=== PATIENT | female | born 1945 | race African-American/Black ===

== ENCOUNTER 2018-07-25 10:12 | Inpatient (IN) | payer OTHER ==
[2018-07-25 10:32] VITALS: BMI 37.7
--- NOTE | 2018-07-25 10:44 | HP ---
COWS - Scale Resting Pulse: 0= [place] 80 or Below Sweatin= No chills or Flushing Restless Observation: 1= Difficult to Sit Still Pupil Size: 1= Pupils >than Normal Bone or Joint Aches: 0= None Runny Nose/ Eye Tearin= Constantly Teary/Runny GI Upset > 30mins: 2= Nausea/Diarrhea Tremor Observation: 0= None Yawning Observation: 0= None Anxiety or Irritability: 0= None Goose Flesh Skin: 0=Smooth Skin COWS Score: 8 CIWA Score - Admission Criteria [facility]ASAS Guidelines: Admission for Medically Managed Detox: Requires at least one of the followin. CIWA greater than 12 2. Seizures within the past 24 hours 3. Delirium tremens within the past 24 hours 4. Hallucinations within the past 24 hours 5. Acute intervention needed for co occurring medical disorder 6. Acute intervention needed for co occurring psychiatric disorder 7. Severe withdrawal that cannot be handled at a lower level of care (continued vomiting, continued diarrhea, abnormal vital signs) requiring intravenous medication and/or fluids 8. Admission ROS [facility] - [facility] Allergies/Adverse Reactions: Allergies Allergy/AdvReac Type Severity Reaction Status Date / Time Penicillins Allergy Severe unknown Verified 07/25/18 11:47 History of Present Illness: patient here requesting detox from heroin use reports 5-6 bags /day via inhalation since age 27 , intermittent periods of sobriety , reports uses after work ( 11 -7p) , currently with withdrawal symptoms as above , latest use yesterday 4 p.m. This is the patient's first treatment episode , denies participation in any outpatient program . Planning to go to [facility]one upon d /c from this detox . utox +opi, sven, mtd , reports took Methadone from a friend last week ( Tuesday take-home dose shared ) , unsure of amount cocaine : 1 gr/day since age 27 tobacco : 1 ppd , requesting nrt w/ gum PMHX : HTN, HLD , borderline DM PSHx : MIRIAM 10/07 uterine fibroids , 1977 BSO no children Psych : denies dx . Exam Limitations: No Limitations - Ebola screening Have you traveled outside of the country in the last 21 days: No Have you had contact with anyone from an Ebola affected area: No Have you been sick,other than usual withdrawal symptoms: No Do you have a fever: No - Review of Systems Constitutional: See HPI EENT: reports: Other (reading glasses , upper and lower dentures) Cardiac: reports: No Symptoms Reported, Other GI: reports: Nausea, Abdominal cramping : reports: No Symptoms Reported Musculoskeletal: reports: Muscle Pain Integumentary: reports: No Symptoms Reported Neuro: reports: No Symptoms reported Endocrine: reports: Other (borderline DM) Psychiatric: reports: Judgement Intact, Orientated x3, Anxious Patient History - Smoking Cessation Smoking history: Current every day smoker Have you smoked in the past 12 months: Yes Aproximately how many cigarettes per day: 20 Hx Chewing Tobacco Use: No Initiated information on smoking cessation: No - Substances Abused Heroin Route: Inhalation Frequency: Daily Amount used: 6 bags Age of first use: 20 Date of Last Use: 07/24/18 Crack Route: Smoking Frequency: 3-6 times per week Amount used: $75 Age of first use: 32 Date of Last Use: 07/23/18 Family Disease History - Family Disease History Family Disease History: Heart Disease: Mother (htn,CAD), Other: Father (ETOH abuse , liver cirrhosis ), Sister (htn, heart disease ) Admission Physical Exam [facility] - Vital Signs Vital Signs: Vital Signs - 24 hr 07/25/18 10:28 Temperature 97.0 F L Pulse Rate 65 Respiratory 18 Rate Blood Pressure 142/70 - Physical General Appearance: Yes: Disheveled, Moderate Distress, Other (malodorous) HEENTM: Yes: Hearing grossly Normal, Normal Voice, Nasal Congestion, Rhinorrhea , Other (upper and lower dentures left upper palpebral small growth medial side -pt states has had x 20 years) Respiratory: Yes: Chest Non-Tender, Lungs Clear, Normal Breath Sounds Neck: Yes: No masses,lesions,Nodules, Trachea in good position Breast: Yes: Breast Exam Deferred Cardiology: Yes: Regular Rhythm, Regular Rate, S1, S2, Other (II/ VISHAL EKG done - c/w 1st degreee AV block , pt denies chest pain at this time , advised to see cardiology , discussed at length , verbalizes understanding, agreeeable to followup with PMD .) Abdominal: Yes: Normal Bowel Sounds, Protuberent Genitourinary: Yes: Within Normal Limits Back: Yes: Muscle Spasm Musculoskeletal: Yes: full range of Motion, Gait Steady Extremities: Yes: Normal Capillary Refill, Normal Range of Motion, Pedal Edema, Other (reports bilateral leg edema x 1 mo , has not been taking BP meds / diuretic) Neurological: Yes: Fully Oriented, Alert, Normal Mood/Affect Integumentary: Yes: Other (non- pitting edema bilateral LE) - Diagnostic (1) Opioid withdrawal Current Visit: Yes Status: Acute (2) Nicotine dependence Current Visit: Yes Status: Chronic Qualifiers: Nicotine product type: cigarettes (3) Cocaine dependence Current Visit: Yes Status: Chronic Qualifiers: Substance use status: uncomplicated Qualified Code(s): F14.20 - Cocaine dependence, uncomplicated (4) Hypertension Current Visit: Yes Status: Chronic Qualifiers: Hypertension type: essential hypertension Qualified Code(s): I10 - Essential (primary) hypertension [facility] Breath Alcohol Content Breath Alcohol Content: 0 Urine Pregancy Test - Result Urine Test Results: Negative- NO Line Present Urine Drug Screen - Results Drug Screen Negative: No Urine Drug Screen Results: SVEN-Cocaine, OPI-Opiates, MTD-Methadone
[2018-07-25] MEDS ORDERED: guaiFENesin/D-METHORPHAN HB 10 ML UNIT-DOSE CUPS PO PRN (10:57)
[2018-07-25] MEDS ORDERED: MAGNESIUM CITRATE 300 ML BOTTLE PO PRN (10:57)
[2018-07-25] MEDS ORDERED: MENTHOL/PHENOL 1 EACH UD MM PRN (10:57)
[2018-07-25] MEDS ORDERED: NICOTINE POLACRILEX 2 MG GUM BUC PRN (10:57)
[2018-07-25] MEDS ORDERED: IBUPROFEN 400 MG TABLET (FP) PO PRN (10:57)
[2018-07-25] MEDS ORDERED: P-EPHED 60MG/TRIPROLIDI 2.5MG TABLET PO PRN (10:57)
[2018-07-25] MEDS ORDERED: MAGNESIUM HYDROX 2400MG/30ML ORAL SUSPENSION 30 ML CUP PO PRN (10:57)
[2018-07-25] MEDS ORDERED: ACETAMINOPHEN 325 MG TABLET (FP) PO PRN (10:57)
[2018-07-25] MEDS ORDERED: MAG HYDROX/AL HYDROX/SIMETH 30 ML UNIT-DOSE CUP PO PRN (10:57)
[2018-07-25] MEDS: HYDROCHLOROTHIAZIDE 25 MG TABLET (FP) PO SCH (13:33)
[2018-07-25] MEDS: LOSARTAN POTASSIUM 50 MG TABLET (FP) PO SCH (13:33)
[2018-07-25] MEDS: cloNIDine HCL 0.1 MG TABLET PO PRN ×2 (13:38→23:30)
[2018-07-25] MEDS ORDERED: METHADONE HCL 10 MG TABLET (FOR DETOX USE ONLY) PO ONE ×2 (13:41→23:00)
[2018-07-25] MEDS ORDERED: ERGOCALCIFEROL (VITAMIN D2) 50,000 UNIT CAPSULE (FP) PO SCH (13:45)
--- NOTE | 2018-07-25 14:05 | EKG ---
Test Reason : Blood Pressure : / mmHG Vent. Rate : 071 BPM Atrial Rate : 071 BPM P-R Int : 210 ms QRS Dur : 098 ms QT Int : 424 ms P-R-T Axes : 070 053 059 degrees QTc Int : 460 ms SINUS RHYTHM WITH 1ST DEGREE A-V BLOCK NONSPECIFIC T WAVE ABNORMALITY ABNORMAL ECG NO PREVIOUS ECGS AVAILABLE Confirmed by Hiro Hatch MD ([id number]) on 07/25/2018 2:04:58 PM Referred By: Confirmed By:Hiro Hatch MD
[2018-07-25 17:39] LABS: URINE APPEARANCE CLOUDY; URINE BILIRUBIN NEGATIVE (<2.0 mg/dL); URINE COLOR AMBER; URINE GLUCOSE (UA) NEGATIVE (NEGATIVE); URINE KETONE NEGATIVE (NEGATIVE); URINE LEUK ESTERASE 3+ (NEGATIVE); URINE NITRITE NEGATIVE (NEGATIVE); URINE PROTEIN 1+ (NEGATIVE)
[2018-07-25 19:49] LABS: EPI CELLS MANY /HPF (FEW); URINE BACTERIA MODERATE /hpf (NONE SEEN); URINE MUCUS RARE
[2018-07-25] MEDS: MELATONIN 5 MG TABLETS PO PRN (22:39)
[2018-07-25] MEDS: THIAMINE HCL 100 MG TABLET (FP) PO SCH (22:39)
[2018-07-25] MEDS: ATORVASTATIN CA 10 MG TABLET (FP) PO SCH (22:39)
[2018-07-26] MEDS ORDERED: diazePAM 5 MG TABLET PO ONE (02:13)
[2018-07-26] MEDS: cloNIDine HCL 0.1 MG TABLET PO PRN ×3 (03:40→15:44)
[2018-07-26] MEDS ORDERED: HYDROCHLOROTHIAZIDE 25 MG TABLET (FP) PO ONE (06:25)
--- NOTE | 2018-07-26 06:27 | PN ---
[facility] Progress Note Note: Patient's blood pressure this morning is B/P 182/100. Patient is asymptomatic Action: Clonidine 0.1mg given by nurse as ordered
[2018-07-26] MEDS ORDERED: ERGOCALCIFEROL (VITAMIN D2) 50,000 UNIT CAPSULE (FP) PO SCH (10:00)
[2018-07-26] MEDS ORDERED: METHADONE HCL 10 MG TABLET (FOR DETOX USE ONLY) PO ONE (10:00)
[2018-07-26] MEDS: diazePAM 5 MG TABLET PO PRN ×2 (10:04→15:44)
[2018-07-26] MEDS: LOSARTAN POTASSIUM 50 MG TABLET (FP) PO SCH (10:04)
[2018-07-26] MEDS: HYDROCHLOROTHIAZIDE 25 MG TABLET (FP) PO SCH (10:04)
[2018-07-26] MEDS: PRENATAL VITAMINS W/ FOLIC ACID TABLET (FP) PO SCH (10:04)
[2018-07-26 10:21] LABS: HEMATOCRIT 42.7 % (32.4-45.2); HEMOGLOBIN 13.1 GM/dL (10.7-15.3); MCH 27.6 pg (25.7-33.7); MCHC 30.7 g/dl (32.0-36.0); MEAN CELL VOLUME 89.6 fl (80-96); MEAN PLT VOLUME 10.3 fl (7.5-11.1); PLATELET COUNT 225 K/MM3 (134-434); RBC 4.77 M/mm3 (3.60-5.2); WHITE BLOOD COUNT 7.3 K/mm3 (4.0-10.0)
--- NOTE | 2018-07-26 11:06 | PN ---
[facility] COWS - Scale Resting Pulse: 0= [place] 80 or Below Sweatin=Flushed/Facial Moisture Restless Observation: 1= Difficult to Sit Still Pupil Size: 0= Normal to Room Light Bone or Joint Aches: 2= Severe Diffuse Aches Runny Nose/ Eye Tearin= Runny Nose/Eyes GI Upset > 30mins: 1= Stomach Cramp Tremor Observation of Outstretched Hands: 2= Slight Tremor Visible Yawning Observation: 2= >3x During Session Anxiety or Irritability: 2=Irritable/Anxious Goose Flesh Skin: 3=Piloerection COWS Score: 17 S Progress Note (SOAP) Subjective: irritable chills goose bumps agitation anxiety restless Objective: 07/26/18 11:06 Vital Signs Temperature 99.7 F H 07/26/18 09:58 Pulse Rate 68 07/26/18 09:58 Respiratory Rate 20 07/26/18 09:58 Blood Pressure 195/88 H 07/26/18 09:58 O2 Sat by Pulse Oximetry (%) Laboratory Tests 07/25/18 07/25/18 07/26/18 13:30 16:50 06:00 WBC 7.3 RBC 4.77 Hgb 13.1 Hct 42.7 MCV 89.6 MCH 27.6 MCHC 30.7 L RDW 14.0 Plt Count 225 MPV 10.3 POC Glucometer 145 Urine Color Melissa Urine Appearance Cloudy Urine pH 5.0 Ur Specific [place] 1.024 Urine Protein 1+ H Urine Glucose (UA) Negative Urine Ketones Negative Urine Blood Negative Urine Nitrite Negative Urine Bilirubin Negative Urine Urobilinogen 2.0 H Ur Leukocyte Esterase 3+ H Urine WBC (Auto) 20 Urine RBC (Auto) 4 Ur Epithelial Cells Many Urine Bacteria Moderate Urine Mucus Rare 07/26/18 06:26 WBC RBC Hgb Hct MCV MCH MCHC RDW Plt Count MPV POC Glucometer 197 Urine Color Urine Appearance Urine pH Ur Specific [place] Urine Protein Urine Glucose (UA) Urine Ketones Urine Blood Urine Nitrite Urine Bilirubin Urine Urobilinogen Ur Leukocyte Esterase Urine WBC (Auto) Urine RBC (Auto) Ur Epithelial Cells Urine Bacteria Urine Mucus lying in bed easily arousable BP 195/88 will continue to monitor Assessment: 07/26/18 11:09 withdrawal sx Plan: continue detox increase fluids detox methadone changed to assist with pt withdrawals continue to monitor pt BP.
[2018-07-26 11:42] LABS: ALBUMIN 3.7 g/dl (3.4-5.0); ALK PHOS 129 U/L (45-117); ANION GAP 9 MMOL/L (8-16); BILIRUBIN,TOTAL 0.5 mg/dL (0.2-1); BLOOD UREA NITROGEN 12 mg/dL (7-18); CALCIUM 9.4 mg/dL (8.5-10.1); CHLORIDE 105 mmol/L (98-107); CO2 27 mmol/L (21-32); CREATININE 0.8 mg/dL (0.55-1.3); GLUCOSE,RANDOM 141 mg/dL (74-106); POTASSIUM 4.3 mmol/L (3.5-5.1); SGOT/AST 17 U/L (15-37); SGPT/ALT 22 U/L (13-61); SODIUM 141 mmol/L (136-145); TOT PROT 7.7 g/dl (6.4-8.2)
--- NOTE | 2018-07-26 15:44 | EKG ---
Test Reason : Blood Pressure : / mmHG Vent. Rate : 061 BPM Atrial Rate : 068 BPM P-R Int : 296 ms QRS Dur : 082 ms QT Int : 448 ms P-R-T Axes : 071 047 057 degrees QTc Int : 450 ms SINUS RHYTHM WITH 1ST DEGREE A-V BLOCK WITH BLOCKED PREMATURE ATRIAL COMPLEXES OTHERWISE NORMAL ECG WHEN COMPARED WITH ECG OF 25-JUL-2018 13:53, PREMATURE ATRIAL COMPLEXES ARE NOW PRESENT NONSPECIFIC T WAVE ABNORMALITY, IMPROVED IN LATERAL LEADS Confirmed by BAN RANGEL, REGINE ([id number]) on 07/26/2018 3:43:53 PM Referred By: Confirmed By:REGINE CEVALLOS MD
[2018-07-26] MEDS: ATORVASTATIN CA 10 MG TABLET (FP) PO SCH (23:22)
[2018-07-26] MEDS: THIAMINE HCL 100 MG TABLET (FP) PO SCH (23:22)
[2018-07-27] MEDS: cloNIDine HCL 0.1 MG TABLET PO PRN ×4 (01:32→23:27)
[2018-07-27] MEDS: diazePAM 5 MG TABLET PO PRN ×5 (01:32→20:14)
[2018-07-27] MEDS ORDERED: METHADONE HCL 5 MG TABLET (FOR DETOX USE ONLY) PO ONE (10:00)
[2018-07-27] MEDS: HYDROCHLOROTHIAZIDE 25 MG TABLET (FP) PO SCH (10:34)
[2018-07-27] MEDS: LOSARTAN POTASSIUM 50 MG TABLET (FP) PO SCH (10:34)
[2018-07-27] MEDS: PRENATAL VITAMINS W/ FOLIC ACID TABLET (FP) PO SCH (10:35)
--- NOTE | 2018-07-27 11:26 | PN ---
[facility] COWS - Scale Resting Pulse: 0= [place] 80 or Below Sweatin=Flushed/Facial Moisture Restless Observation: 1= Difficult to Sit Still Pupil Size: 0= Normal to Room Light Bone or Joint Aches: 1= Mild Discomfort Runny Nose/ Eye Tearin= Runny Nose/Eyes GI Upset > 30mins: 0= None Tremor Observation of Outstretched Hands: 2= Slight Tremor Visible Yawning Observation: 2= >3x During Session Anxiety or Irritability: 2=Irritable/Anxious Goose Flesh Skin: 0=Smooth Skin COWS Score: 12 S Progress Note (SOAP) Subjective: sweats shakes interrupted sleep body aches Objective: 07/27/18 11:25 Vital Signs Temperature 99.5 F 07/27/18 09:38 Pulse Rate 72 07/27/18 09:38 Respiratory Rate 18 07/27/18 09:38 Blood Pressure 158/69 07/27/18 09:38 O2 Sat by Pulse Oximetry (%) Laboratory Tests 07/25/18 07/25/18 07/26/18 13:30 16:50 06:00 WBC 7.3 RBC 4.77 Hgb 13.1 Hct 42.7 MCV 89.6 MCH 27.6 MCHC 30.7 L RDW 14.0 Plt Count 225 MPV 10.3 Sodium Potassium Chloride Carbon Dioxide Anion Gap BUN Creatinine Creat Clearance w eGFR POC Glucometer 145 Random Glucose Calcium Total Bilirubin AST ALT Alkaline Phosphatase Total Protein Albumin Urine Color Melissa Urine Appearance Cloudy Urine pH 5.0 Ur Specific [place] 1.024 Urine Protein 1+ H Urine Glucose (UA) Negative Urine Ketones Negative Urine Blood Negative Urine Nitrite Negative Urine Bilirubin Negative Urine Urobilinogen 2.0 H Ur Leukocyte Esterase 3+ H Urine WBC (Auto) 20 Urine RBC (Auto) 4 Ur Epithelial Cells Many Urine Bacteria Moderate Urine Mucus Rare RPR Titer 07/26/18 07/26/18 07/26/18 06:00 06:00 06:26 WBC RBC Hgb Hct MCV MCH MCHC RDW Plt Count MPV Sodium 141 Potassium 4.3 Chloride 105 Carbon Dioxide 27 Anion Gap 9 BUN 12 Creatinine 0.8 Creat Clearance w eGFR > 60 POC Glucometer 197 Random Glucose 141 H Calcium 9.4 Total Bilirubin 0.5 AST 17 ALT 22 Alkaline Phosphatase 129 H Total Protein 7.7 Albumin 3.7 Urine Color Urine Appearance Urine pH Ur Specific [place] Urine Protein Urine Glucose (UA) Urine Ketones Urine Blood Urine Nitrite Urine Bilirubin Urine Urobilinogen Ur Leukocyte Esterase Urine WBC (Auto) Urine RBC (Auto) Ur Epithelial Cells Urine Bacteria Urine Mucus RPR Titer Nonreactive 07/26/18 07/27/18 17:05 05:56 WBC RBC Hgb Hct MCV MCH MCHC RDW Plt Count MPV Sodium Potassium Chloride Carbon Dioxide Anion Gap BUN Creatinine Creat Clearance w eGFR POC Glucometer 209 161 Random Glucose Calcium Total Bilirubin AST ALT Alkaline Phosphatase Total Protein Albumin Urine Color Urine Appearance Urine pH Ur Specific [place] Urine Protein Urine Glucose (UA) Urine Ketones Urine Blood Urine Nitrite Urine Bilirubin Urine Urobilinogen Ur Leukocyte Esterase Urine WBC (Auto) Urine RBC (Auto) Ur Epithelial Cells Urine Bacteria Urine Mucus RPR Titer aaox3 ambulating no acute distress Assessment: 07/27/18 11:26 withdrawal sx Plan: continue detox increase fluids
[2018-07-27] MEDS: MELATONIN 5 MG TABLETS PO PRN (23:26)
[2018-07-27] MEDS: ATORVASTATIN CA 10 MG TABLET (FP) PO SCH (23:26)
[2018-07-27] MEDS: THIAMINE HCL 100 MG TABLET (FP) PO SCH (23:27)
[2018-07-28] MEDS: diazePAM 5 MG TABLET PO PRN ×2 (06:15→10:53)
[2018-07-28] MEDS ORDERED: METHADONE HCL 10 MG TABLET (FOR DETOX USE ONLY) PO ONE (10:00)
[2018-07-28] MEDS ORDERED: METHADONE HCL 5 MG TABLET (FOR DETOX USE ONLY) PO ONE (10:00)
[2018-07-28] MEDS: PRENATAL VITAMINS W/ FOLIC ACID TABLET (FP) PO SCH (10:52)
[2018-07-28] MEDS: LOSARTAN POTASSIUM 50 MG TABLET (FP) PO SCH (10:53)
[2018-07-28] MEDS: HYDROCHLOROTHIAZIDE 25 MG TABLET (FP) PO SCH (10:53)
--- NOTE | 2018-07-28 13:49 | PN ---
BHS Progress Note (SOAP) Subjective: sweats tired Objective: 07/28/18 13:49 Vital Signs Temperature 98.4 F 07/28/18 09:25 Pulse Rate 52 L 07/28/18 09:25 Respiratory Rate 18 07/28/18 09:25 Blood Pressure 138/77 07/28/18 09:25 O2 Sat by Pulse Oximetry (%) aaox3 ambulating no acute distress Assessment: 07/28/18 13:49 mild withdrawal sx Plan: continue detox increase fluids
[2018-07-28 17:49] VITALS: BP 101/65; PULSE 69; TEMP 96.6
[2018-07-28] MEDS: ATORVASTATIN CA 10 MG TABLET (FP) PO SCH (23:22)
[2018-07-28] MEDS: THIAMINE HCL 100 MG TABLET (FP) PO SCH (23:23)
[2018-07-29] MEDS ORDERED: METHADONE HCL 5 MG TABLET (FOR DETOX USE ONLY) PO ONE (06:00)
--- NOTE | 2018-07-29 09:28 | DS ---
[facility] Detox Discharge Summary Admission Date: 07/25/18 Discharge Date: 07/29/18 - History Present History: Opioid Dependence - Physical Exam Results Vital Signs: Vital Signs Temperature 96.6 F L 07/28/18 17:01 Pulse Rate 69 07/28/18 17:01 Respiratory Rate 16 07/28/18 17:25 Blood Pressure 101/65 07/28/18 17:01 O2 Sat by Pulse Oximetry (%) - Medication Discharge Medications: Ambulatory Orders Clonidine Patch [Catapres Tts Patch -] 0.3 mg TD WEEKLY 07/25/18 Ergocalciferol (Vitamin D2) [Vitamin D2] 50,000 unit PO WEEKLY 07/25/18 Hydrochlorothiazide [Hctz -] 25 mg PO DAILY 07/25/18 Losartan Potassium [Cozaar] 100 mg PO DAILY 07/25/18 Simvastatin [Zocor -] 20 mg PO HS 07/25/18 - Diagnosis (1) Opioid withdrawal Status: Chronic (2) Cocaine dependence Status: Chronic Qualifiers: Substance use status: uncomplicated Qualified Code(s): F14.20 - Cocaine dependence, uncomplicated (3) Hypertension Status: Chronic Qualifiers: Hypertension type: essential hypertension Qualified Code(s): I10 - Essential (primary) hypertension (4) Nicotine dependence Status: Chronic Qualifiers: Nicotine product type: cigarettes Substance use status: uncomplicated Qualified Code(s): F17.210 - Nicotine dependence, cigarettes, uncomplicated - AMA Did Patient Leave Against Medical Advice: No (pt admitted to [facility] med/surg)
[2018-07-29] MEDS ORDERED: METHADONE HCL 10 MG TABLET (FOR DETOX USE ONLY) PO ONE (10:00)
[2018-07-30] MEDS ORDERED: METHADONE HCL 5 MG TABLET (FOR DETOX USE ONLY) PO ONE (06:00)
[2018-07-30] MEDS ORDERED: METHADONE HCL 5 MG TABLET PO SCH (06:00)
== END 2018-07-28 23:55 | disposition short-term general hospital (02) | DRG 897 ==
LOC: YASAS 10:12 → Y6N 12:31
PROVIDERS: ADMIT Neuromusculoskeletal Medicine & OMM; ATTEND Neuromusculoskeletal Medicine & OMM
PROC: HZ2ZZZZ Detoxification Services for Substance Abuse Treatment (ICD-10-PCS; principal; 2018-07-25)
DX: F11.23 Opioid dependence with withdrawal (principal); F14.20 Cocaine dependence, uncomplicated; F17.210 Nicotine dependence, cigarettes, uncomplicated; I10 Essential (primary) hypertension; Z88.0 Allergy status to penicillin
CPT/HCPCS: 36415; 80053; 81003; 81015; 82962; 85027; 86593; 93005; 93010; J0735

== ENCOUNTER 2018-07-28 18:06 | Inpatient (IN) | payer OTHER ==
--- NOTE | 2018-07-28 19:09 | PDOC ---
Attending Attestation - HPI HPI: 07/28/18 22:38 The patient is a 72 year old female, with a significant past medical history of HTN, polysubstance abuse, CAD, who presents to the emergency department with, nausea, vomiting, body aches. Patient is currently in detox and endorses that the facility is not giving her enough methadone which she believes onset her symptoms. She denies recent chest pain or shortness of breath. Allergies: Penicillins Social history: Cocaine, heroin usage (snort- never used IV drugs) Primary Care Physician: Dr. Villegas - Physicial Exam PE: 07/28/18 22:38 Constitutional: Awake, alert, oriented. No acute distress. Head: Normocephalic. Atraumatic Eyes: PERRL. EOMI. Conjunctivae are not pale. ENT: Dry mucous membranes. Neck: Supple. Full ROM. No lymphadenopathy. Cardiovascular: Regular rate. Regular rhythm. S1, S2 regular. Distal pulses are 2+ and symmetric. Pulmonary/Chest: No evidence of respiratory distress. Clear to auscultation bilaterally No wheezing, rales or rhonchi. +Abdominal: Diffuse tenderness. Soft and non-distended. No rebound, guarding or rigidity. No organomegaly. No palpable masses. Good bowel sounds. Back: No CVA tenderness. Musculoskeletal: No edema. No cyanosis. No clubbing. Full range of motion in all extremities. No calf tenderness. Radial/pedal pulses are intact and 2+ bilaterally Skin: Skin is warm and dry. No petechiae. No purpura. Neurological: Alert and oriented to person, place, and time. Cranial nerves II -XII are grossly intact. Normal speech. Strength is grossly symmetric. No sensory deficits. Psychiatric: Good eye contact. Normal interaction, affect and behavior. <Jorge Jefferson - Last Filed: 07/28/18 22:38> - Resident Resident Name: Kenia Hernandez - ED Attending Attestation I have performed the following: I have examined & evaluated the patient, The case was reviewed & discussed with the resident, I agree w/resident's findings & plan, Exceptions are as noted - Medical Decision Making 07/28/18 19:09 I, Dr. Keara Foster, DO, attest that this document has been prepared under my direction and personally reviewed by me in its entirety. I further attest, that it accurately reflects all work, treatment, procedures and medical decision -making performed by me. 07/28/18 20:14 a/p: [address] [facility] - currently admitted for detox from cocaine and heroin use -day 3 of detox -n/v/d -unable to tolerate po -states methadone is not helping -pt with n/v in the ED -will send labs, ekg, medicate -will monitor and reassess -pt appears dehydrated on exam 07/28/18 22:44 pt with KAROL on labs will admit for ivf hydration - nausea and vomiting control abd soft and nontender <Keara Foster - Last Filed: 07/28/18 23:44> Heart Score/ECG Review - ECG Intrepretation Comment:: 07/28/18 23:44 sinus at 89, pvc, pac, nl axis, abnl ekg <Keara Foster - Last Filed: 07/28/18 23:44> Attestations - Attestations 07/28/18 22:38 Documentation prepared by Jorge Jefferson, acting as medical office rep for Keara Foster DO. <Jorge Jefferson - Last Filed: 07/28/18 22:38>
[2018-07-28] MEDS ORDERED: SODIUM CHLORIDE 0.9% 500 ML INFUS.BAG IV ONE ×2 (19:11→22:44)
--- NOTE | 2018-07-28 19:12 | PDOC ---
History of Present Illness - General Chief Complaint: Lethargy Stated Complaint: LETHARGIC Time Seen by Provider: 07/28/18 18:41 History Source: Patient Exam Limitations: No Limitations - History of Present Illness Initial Comments: 07/28/18 19:07 72 YOF with h/o cocaine and heroin use disorder (no IVDA, only snorts both, last use 07/25/18), HTN, and CAD who was BIBEMS from detox for withdrawal symptoms (sweats, nausea, wretching, and head-to-toe body aches) which have been worsening since Tuesday despite methadone use as administered by [facility]. She denies ever having withdrawn from these drugs before, has been using them for many years, and states that the 10-15 mg methadone have not been resolving her sxs. Past History - Past Medical History Allergies/Adverse Reactions: Allergies Allergy/AdvReac Type Severity Reaction Status Date / Time Penicillins Allergy Severe unknown Verified 07/28/18 19:00 Home Medications: Ambulatory Orders Clonidine Patch [Catapres Tts Patch -] 0.3 mg TD WEEKLY 07/25/18 Ergocalciferol (Vitamin D2) [Vitamin D2] 50,000 unit PO WEEKLY 07/25/18 Hydrochlorothiazide [Hctz -] 25 mg PO DAILY 07/25/18 Losartan Potassium [Cozaar] 100 mg PO DAILY 07/25/18 Simvastatin [Zocor -] 20 mg PO HS 07/25/18 Asthma: No Cardiac Disorders: No COPD: No Diabetes: No GI Disorders: Yes (acid reflux) Disorders: No HTN: Yes Kidney Stones: No Seizures: No - Surgical History Abdominal Surgery: Yes (hysterectomy (fibroid tumors) in 1988) Appendectomy: No Cardiac Surgery: No Cholecystectomy: No Lung Surgery: No Neurologic Surgery: No Orthopedic Surgery: No - Reproductive History PID: No - Suicide/Smoking/Psychosocial Hx Smoking History: Current every day smoker Have you smoked in the past 12 months: Yes Number of Cigarettes Smoked Daily: 20 Information on smoking cessation initiated: No Hx Alcohol Use: No Drug/Substance Use Hx: No Substance Use Type: None Hx Substance Use Treatment: No Review of Systems - Review of Systems Able to Perform ROS?: Yes Comments:: GEN: malaise, generalized weakness, no fever, chills, or weight change HEENT: no ear pain, sore throat, vision change, or eye pain CV: no chest pain, palpitations, lightheadedness, syncope, or edema RESP: no cough, wheezing, or SOB GI: nausea, wretching, no abdominal pain, diarrhea, constipation, or white/black /bloody stool : no dysuria, hematuria, incontinence, retention, bleeding, or discharge MSK: diffuse body pain, no neck/back pain, muscle weakness, or joint swelling/ pain NEURO: no headache, seizure, vertigo, numbness, tingling, or focal weakness PSYCH: no substance use, no behavior change SKIN: no jaundice, no rash ROS otherwise negative except as noted in HPI *Physical Exam - Vital Signs Last Vital Signs Temp Pulse Resp BP Pulse Ox 96.6 F L 69 18 101/65 100 07/28/18 18:56 07/28/18 18:56 07/28/18 18:56 07/28/18 18:56 07/28/18 18:56 07/28/18 19:13 GENERAL: tired and a bit uncomfortable appearing adult female, A/Ox4, no distress, answers questions appropriately HEENT: PERRLA, EOMI, moist mucous membranes NECK/BACK: no midline ttp, no spinal stepoff or deformity, no hematoma, full ROM , neck supple CARDIOVASCULAR: regular rate/rhythm, normal S1S2, no MGR, strong peripheral pulses, capillary refill <2 seconds, extremities wwp, no edema LUNGS/RESPIRATORY: no respiratory distress, CTAB GI/ABDOMEN: protuberant but not tight and this is stated baseline, symmetric [id number], normoactive BS, soft, no ttp, no midline pulsatile masses : no CVA tenderness EXTREMITIES: no muscle atrophy, no acute deformity, no edema SKIN: warm and dry, no pallor, no jaundice, no rash, no bruising, no skin breakdown, no cuts, no lesions NEUROLOGICAL: GCS 15, CN II-XII grossly intact, 5/5 strength proximally and distally, no facial droop ED Treatment Course - LABORATORY CBC & Chemistry Diagram: 07/28/18 22:10 07/28/18 22:10 Medical Decision Making - Medical Decision Making 07/28/18 19:15 Older adult female Pt with long-standing h/o cocaine and heroin use (no IVDA) who was BIBEMS from [facility] for malaise, nausea, head-to-toe body aches unrelieved with the methadone dose she is getting. Initial Vital Signs Temp Pulse Resp BP Pulse Ox 96.6 F L 69 18 101/65 100 07/28/18 18:56 07/28/18 18:56 07/28/18 18:56 07/28/18 18:56 07/28/18 18:56 Exam: As noted in Physical Exam section. Most likely this is normal course of withdrawal sxs from long-standing cocaine/ heroin use. Less likely influenza or other viral syndrome. Patient's symptoms may be exacerbated by dehydration. W/U ordered: EKG to ensure no prolonged QT prior to antiemetic administration, CBCD CMP Mg UA UCx TX ordered: IVF only on initial orders, Bentyl, Maalox, Pepcid EKG: Reviewed; results as noted in ECG Review section. Laboratory Tests 07/28/18 07/28/18 22:10 22:10 WBC 14.7 H RBC 5.89 H Hgb 16.5 H Hct 51.3 H D MCV 87.1 MCH 28.1 MCHC 32.3 RDW 13.8 Plt Count 267 MPV 9.0 D Absolute Neuts (auto) 10.0 H Neutrophils % 67.8 Lymphocytes % 21.5 Monocytes % 9.4 Eosinophils % 0.4 Basophils % 0.9 Nucleated RBC % 0 Sodium 138 Potassium 3.3 L Chloride 96 L Carbon Dioxide 29 Anion Gap 13 BUN 40 H Creatinine 2.4 H Creat Clearance w eGFR 19.96 Random Glucose 139 H Calcium 9.3 Magnesium 2.2 Total Bilirubin 1.0 AST 17 ALT 25 Alkaline Phosphatase 131 H Total Protein 8.0 Albumin 3.9 Still awaiting urine sample but patient has KAROL. Reassessment: Patient remains painful, Ofirmev was ordered. IVF running. I have ordered another liter IVF. 07/28/18 22:57 The Pt is unsafe for discharge at this time. They require further hospital observation, workup, and treatment. Microblog sent to [facility] for admission. Blank Decision to Admit order is placed per ED protocol. 07/28/18 23:45 I spoke with admitting team, and added Dr. Canela's name to the order. *DC/Admit/Observation/Transfer Diagnosis at time of Disposition: KAROL (acute kidney injury), Cocaine withdrawal, Opioid withdrawal - Discharge Dispostion Condition at time of disposition: Guarded Decision to Admit order: Yes - Referrals - Patient Instructions - Post Discharge Activity
[2018-07-28] MEDS ORDERED: FAMOTIDINE 20 MG/50 ML IVPB 20 MG/50 ML MG IVPB ONE ×2 (19:56→20:47)
[2018-07-28] MEDS ORDERED: MAG HYDROX/AL HYDROX/SIMETH 30 ML UNIT-DOSE CUP PO ONE (19:56)
[2018-07-28] MEDS ORDERED: DICYCLOMINE HCL 20 MG TABLET PO ONE (19:56)
[2018-07-28] MEDS ORDERED: LIDOCAINE VISCOUS 2% ORAL/TOP 100 ML BOTTLE MM ONE (19:56)
[2018-07-28] MEDS ORDERED: DICYCLOMINE HCL 10 MG CAPSULE ONE (20:46)
[2018-07-28] MEDS ORDERED: MAG HYDROX/AL HYDROX/SIMETH 30 ML UNIT-DOSE CUP ONE (20:47)
[2018-07-28] MEDS ORDERED: ACETAMINOPHEN 1000 MG/100 ML VIAL (NON FORMULARY) IVPB ONE (22:16)
[2018-07-28] MEDS ORDERED: ACETAMINOPHEN INJECTION 100 ML IVPB ONE (22:30)
[2018-07-28 22:33] LABS: BASO % 0.9 % (0-2.0); EOS % 0.4 % (0-4.5); HEMATOCRIT 51.3 % (32.4-45.2); HEMOGLOBIN 16.5 GM/dL (10.7-15.3); LYMPH % 21.5 % (8-40); MCH 28.1 pg (25.7-33.7); MCHC 32.3 g/dl (32.0-36.0); MEAN CELL VOLUME 87.1 fl (80-96); MONO % 9.4 % (3.8-10.2); NEUT % 67.8 % (42.8-82.8); PLATELET COUNT 267 K/MM3 (134-434); RBC 5.89 M/mm3 (3.60-5.2); RDW 13.8 % (11.6-15.6); WHITE BLOOD COUNT 14.7 K/mm3 (4.0-10.0)
[2018-07-28 22:41] LABS: ALBUMIN 3.9 g/dl (3.4-5.0); ALK PHOS 131 U/L (45-117); ANION GAP 13 MMOL/L (8-16); BLOOD UREA NITROGEN 40 mg/dL (7-18); CALCIUM 9.3 mg/dL (8.5-10.1); CHLORIDE 96 mmol/L (98-107); CO2 29 mmol/L (21-32); CREATININE 2.4 mg/dL (0.55-1.3); GLUCOSE,RANDOM 139 mg/dL (74-106); MAGNESIUM 2.2 mg/dL (1.8-2.4); POTASSIUM 3.3 mmol/L (3.5-5.1); SGOT/AST 17 U/L (15-37); SGPT/ALT 25 U/L (13-61); SODIUM 138 mmol/L (136-145)
--- NOTE | 2018-07-28 23:30 | PN ---
Teaching Attending Note Name of Resident: Juana Kaye ATTENDING PHYSICIAN STATEMENT I saw and evaluated the patient. I reviewed the resident's note and discussed the case with the resident. I agree with the resident's findings and plan as documented. SUBJECTIVE: Patient is a 72 year old woman with PMH of cocaine and heroin use (no IVDA, only snorts both, last use 07/25/18), penicillin allergy, HTN, and CAD who was presents from [facility] for withdrawal symptoms (sweats, nausea, wretching , and head-to-toe body aches) which have been worsening since Tuesday despite methadone use as administered by [facility]. She denies ever having withdrawn from these drugs before, has been using them for many years, and states that the 10-15 mg methadone have not been resolving her symptoms. OBJECTIVE: Somnolent but arousable Vital Signs Period Temp Pulse Resp BP Sys/Guerra Pulse Ox Last 24 Hr 96.6 F 69 18 101/65 100 HEENT: No Jaundice, eye redness or discharge, PERRLA, EOMI. Normocephalic, atraumatic. External ears are normal and hearing is grossly intact. No nasal discharge. Neck: Supple, nontender. No palpable adenopathy or thyromegaly. No JVD Chest: Good effort. Clear to auscultation and percussion. Heart: Regular. No S3, rub or murmur Abdomen: Not distended, soft; diffusely tender and no HSM. No rebound or guarding. Normoactive bowel sounds. Ext: Peripheral pulses intact. No leg edema. Skin: Warm and dry. No petechiae, rash or ecchymosis. Neuro: Somnolent but arousable. Oriented to person. CN 2-12 grossly intact. Sensation grossly intact in all four extremities and DTR are symmetric. Home Medications Medication Instructions Recorded Clonidine Patch [Catapres Tts 0.3 mg TD WEEKLY 07/25/18 Patch -] Ergocalciferol (Vitamin D2) 50,000 unit PO WEEKLY 07/25/18 [Vitamin D2] Hydrochlorothiazide [Hctz -] 25 mg PO DAILY 07/25/18 Losartan Potassium [Cozaar] 100 mg PO DAILY 07/25/18 Simvastatin [Zocor -] 20 mg PO HS 07/25/18 Abnormal Lab Results 07/28/18 07/28/18 22:10 22:10 WBC 14.7 H RBC 5.89 H Hgb 16.5 H Hct 51.3 H D Absolute Neuts (auto) 10.0 H Potassium 3.3 L Chloride 96 L BUN 40 H Creatinine 2.4 H Random Glucose 139 H Alkaline Phosphatase 131 H ASSESSMENT AND PLAN: 1. Heroin/Cocaine withdrawal - Monitor closely for withdrawal and further QT prolongation. Consult digital media specialist. Leukocytosis likely reactive, but will exclude infection. Get abdominal CT and UA stat. Continue IV NS. Check HbA1c, Mg and give KCL. Hemoconcentration may signal dehydration and effect of smoking. 2. Tobacco Use We will provide patient all the necessary assistance to facilitate smoking cessation and prescribe Nicotine patch. 3. KAROL - May be due to effects of drug use. Needs work up - check UA, CPK, and kidney sonogram. Consult nephrology and avoid nephrotoxic agents such as NSAIDS , aminoglycosides, contrast dyes and certain Alternative medicine products. 4. Obesity - Will provide patient all the necessary assistance , counseling and positive reinforcement to facilitate weight loss. Consult machine cloth examiner. 5. Alcohol abuse - Implement [facility] alcohol withdrawal protocol, fall and aspiration precautions. Treat with thiamine and folic acid and monitor electrolytes (Ca,Mg,K,P). Principal Consultant patient about abstaining from alcohol and refer to alcohol detox upon discharge. 6. DVT prophylaxis - Heparin 5000u sq tid. 7. Advance directives - Full code
[2018-07-29] MEDS ORDERED: POTASSIUM CHLORIDE ORAL LIQUID 20 MEQ/15 ML PO ONE (01:01)
--- NOTE | 2018-07-29 01:14 | HP ---
CHIEF COMPLAINT: N/V/body aches and chills x 1 day PCP: Dr. Villegas HISTORY OF PRESENT ILLNESS: 72 y/o F with PMH HTN, polysubstance abuse, CAD, who presents to the ED for N/V , body aches and chills x 1 day duration. As per pt, she was in detox for the past three days at [facility], on methadone. States that she is currently on 20mg of methadone, however complains that her withdrawals have been very severe. Pt has significant drug hx as she has used 5-6 bags of heroin/day and 1g cocaine/day over the past 30 yrs. Her last use was on 07/25. On exam, pt very lethargic. However without further complaint; denies HERNANDEZ, fever, chest pain or pressure, or changes in urinary or bowel function. ER course was notable for: (1) IV tylenol (2) bentyl (3) lidocaine mouth swish (4) famotidine (5) NS Recent Travel: denies PAST MEDICAL HISTORY: as above PAST SURGICAL HISTORY: 1988- hysterectomy Social History: from [facility] Smoking: endorses; unable to quantify Alcohol: endorses "in past" Drugs: 5-6 bags heroin/day, 1g cocaine/day for >30yrs Family History: unable to provide; too lethargic on exam Allergies Penicillins Allergy (Severe, Verified 07/28/18 19:00) unknown HOME MEDICATIONS: Home Medications Medication Instructions Recorded Clonidine Patch [Catapres Tts 0.3 mg TD WEEKLY 07/25/18 Patch -] Ergocalciferol (Vitamin D2) 50,000 unit PO WEEKLY 07/25/18 [Vitamin D2] Hydrochlorothiazide [Hctz -] 25 mg PO DAILY 07/25/18 Losartan Potassium [Cozaar] 100 mg PO DAILY 07/25/18 Simvastatin [Zocor -] 20 mg PO HS 07/25/18 Medications will need to be reviewed in AM when pharmacy open/ would call [facility] REVIEW OF SYSTEMS CONSTITUTIONAL: +Chills, generalized weakness Absent: fever, diaphoresis, generalized weakness, malaise, loss of appetite, weight change HEENT: Absent: rhinorrhea, nasal congestion, throat pain, throat swelling, difficulty swallowing, mouth swelling, ear pain, eye pain, visual changes CARDIOVASCULAR: Absent: chest pain, syncope, palpitations, irregular heart rate, lightheadedness , peripheral edema RESPIRATORY: Absent: cough, shortness of breath, dyspnea with exertion, orthopnea, wheezing, stridor, hemoptysis GASTROINTESTINAL:+n/v Absent: abdominal pain, abdominal distension,diarrhea, constipation, melena, hematochezia GENITOURINARY: Absent: dysuria, frequency, urgency, hesitancy, hematuria, flank pain, genital pain MUSCULOSKELETAL: +myalgias Absent: arthralgia, joint swelling, back pain, neck pain SKIN: Absent: rash, itching, pallor HEMATOLOGIC/IMMUNOLOGIC: Absent: easy bleeding, easy bruising, lymphadenopathy, frequent infections ENDOCRINE: Absent: unexplained weight gain, unexplained weight loss, heat intolerance, cold intolerance NEUROLOGIC: Absent: headache, focal weakness or paresthesias, dizziness, unsteady gait, seizure, mental status changes, bladder or bowel incontinence PSYCHIATRIC: Absent: anxiety, depression, suicidal or homicidal ideation, hallucinations. PHYSICAL EXAMINATION Vital Signs - 24 hr 07/28/18 18:56 Temperature 96.6 F L Pulse Rate 69 Respiratory 18 Rate Blood Pressure 101/65 O2 Sat by Pulse 100 Oximetry (%) GENERAL: very lethargic, however responsive. in NAD HEAD: Normal with no signs of trauma. EYES: Pupils equal, round and reactive to light, extraocular movements intact EARS, NOSE, THROAT: Ears normal, nares patent, oropharynx very dry NECK: Normal range of motion, supple LUNGS: Breath sounds equal, clear to auscultation bilaterally. No wheezes, and no crackles. HEART: Regular rate and rhythm, normal S1 and S2 without murmur, rub or gallop. ABDOMEN: Soft, diffusely TTP, not distended, normoactive bowel sounds, mild guarding MUSCULOSKELETAL: Normal range of motion at all joints. LOWER EXTREMITIES: +dry, scaly. 2+ pt pulses, warm, well-perfused. No calf tenderness. No peripheral edema. NEUROLOGICAL: unable to assess as pt lethargic PSYCHIATRIC: Cooperative. SKIN: Warm, dry Laboratory Results - last 24 hr 07/28/18 07/28/18 22:10 22:10 WBC 14.7 H RBC 5.89 H Hgb 16.5 H Hct 51.3 H D MCV 87.1 MCH 28.1 MCHC 32.3 RDW 13.8 Plt Count 267 MPV 9.0 D Absolute Neuts (auto) 10.0 H Neutrophils % 67.8 Lymphocytes % 21.5 Monocytes % 9.4 Eosinophils % 0.4 Basophils % 0.9 Nucleated RBC % 0 Sodium 138 Potassium 3.3 L Chloride 96 L Carbon Dioxide 29 Anion Gap 13 BUN 40 H Creatinine 2.4 H Creat Clearance w eGFR 19.96 Random Glucose 139 H Calcium 9.3 Magnesium 2.2 Total Bilirubin 1.0 AST 17 ALT 25 Alkaline Phosphatase 131 H Total Protein 8.0 Albumin 3.9 ASSESSMENT/PLAN: 72 y/o F with PMH HTN, polysubstance abuse, CAD, who presents to the ED for N/V , body aches and chills x 1 day duration. As per pt, she was in detox for the past three days at [facility], on methadone. #Opiate withdrawal -currently with N/V, body aches, and chills. COWS 9; consistent with mild withdrawal. would reassess score during hospital stay. -qtc prolongation (506ms)- will avoid methadone for now d/t prolongation. consider starting in AM, detox has been consulted. avoid zofran and qtc prolonging agents -vomiting may have caused ?reactive white count #Abdominal tenderness, r/o acute pathology -F/u CT abdomen/pelvis w/o contrast; with tender abdomen on exam. -currently afebrile, however with white count - may explain findings #KAROL -possible 2/2 drug use, dehydration. will give gentle IVF. has hemoconcentration on labs -f/u UA, CPK, renal sono. will check for hydro #HTN -hold anti-HTN meds in setting of low BP (100/60) -will need to verify home meds in AM with [facility], pharmacy #hx alcohol use -thiamine -folic acid #hypokalemia -will replete 40mg KCl -continue to follow level #F/E/N IV NS 75 cc/hr continue to follow lytes NPO for now; avoid aspiration #PPX Hep 5000 SQ TID #Dispo med-surg monitoring Visit type - Emergency Visit Emergency Visit: Yes ED Registration Date: 07/28/18 Care time: The patient presented to the Emergency Department on the above date and was hospitalized for further evaluation of their emergent condition. - New Patient This patient is new to me today: Yes Date on this admission: 07/29/18 - Critical Care Critical Care patient: No
[2018-07-29] MEDS: SODIUM CHLORIDE 1,000 ML IV SCH ×2 (03:36→14:21)
[2018-07-29] MEDS ORDERED: POTASSIUM CHLORIDE ORAL LIQUID 20 MEQ/15 ML ONE (03:37)
[2018-07-29 05:20] LABS: BASO % 0.9 % (0-2.0); HEMOGLOBIN 16.6 GM/dL (10.7-15.3)
[2018-07-29 05:40] LABS: ANION GAP 11 MMOL/L (8-16); BLOOD UREA NITROGEN 44 mg/dL (7-18); CALCIUM 9.4 mg/dL (8.5-10.1); CHLORIDE 98 mmol/L (98-107); CO2 27 mmol/L (21-32); CREATININE 2.4 mg/dL (0.55-1.3); GLUCOSE,RANDOM 170 mg/dL (74-106); MAGNESIUM 2.3 mg/dL (1.8-2.4); POTASSIUM 4.1 mmol/L (3.5-5.1); SODIUM 136 mmol/L (136-145)
[2018-07-29 05:45] LABS: EOS % 0.3 % (0-4.5); HEMATOCRIT 52.4 % (32.4-45.2); LYMPH % 23.8 % (8-40); MCHC 31.7 g/dl (32.0-36.0); MEAN CELL VOLUME 88.3 fl (80-96); PLATELET COUNT 220 K/MM3 (134-434); RBC 5.93 M/mm3 (3.60-5.2); WHITE BLOOD COUNT 12.9 K/mm3 (4.0-10.0)
[2018-07-29] MEDS ORDERED: ACETAMINOPHEN 325 MG TABLET (FP) PO ONE (05:50)
[2018-07-29] MEDS: HEPARIN NA (PORCINE) 5,000 UNITS/ML 1ML VIAL SQ SCH ×3 (06:35→21:23)
--- NOTE | 2018-07-29 09:36 | PN ---
Progress Note (short form) - Note Progress Note: Patient is feeling well with no aCUTE distress. Asking for methadone. Vital Signs Temperature 98.0 F 07/29/18 05:45 Pulse Rate 109 H 07/29/18 05:50 Respiratory Rate 18 07/29/18 05:50 Blood Pressure 114/75 07/29/18 05:50 O2 Sat by Pulse Oximetry (%) 98 07/29/18 05:45 GENERAL: NAD, AAOX3 HEAD: Normal with no signs of trauma. EYES: Pupils equal, round and reactive to light, extraocular movements intact EARS, NOSE, THROAT: Ears normal, oropharynx very dry NECK: Normal range of motion, supple LUNGS: Breath sounds equal, clear to auscultation bilaterally. No wheezes, and no crackles. HEART: Regular rate and rhythm, normal S1 and S2 without murmur, rub or gallop. ABDOMEN: Soft, NT,ND , normoactive bowel sounds, MUSCULOSKELETAL: Normal range of motion at all joints. EXTREMITIES: +dry, scaly. 2+ pt pulses, warm, well-perfused. No calf tenderness. No peripheral edema. NEUROLOGICAL: AA)x3, NFD, cN2-12 GROSSLY INTACT PSYCHIATRIC: Cooperative. SKIN: Warm, dry CBCD WBC 12.9 K/mm3 (4.0-10.0) H 07/29/18 05:13 RBC 5.93 M/mm3 (3.60-5.2) H 07/29/18 05:13 Hgb 16.6 GM/dL (10.7-15.3) H 07/29/18 05:13 Hct 52.4 % (32.4-45.2) H 07/29/18 05:13 MCV 88.3 fl (80-96) 07/29/18 05:13 MCHC 31.7 g/dl (32.0-36.0) L 07/29/18 05:13 RDW 14.0 % (11.6-15.6) 07/29/18 05:13 Plt Count 220 K/MM3 (134-434) 07/29/18 05:13 MPV 9.0 fl (7.5-11.1) 07/29/18 05:13 CMP Sodium 136 mmol/L (136-145) 07/29/18 05:13 Potassium 4.1 mmol/L (3.5-5.1) 07/29/18 05:13 Chloride 98 mmol/L (98-107) 07/29/18 05:13 Carbon Dioxide 27 mmol/L (21-32) 07/29/18 05:13 Anion Gap 11 MMOL/L (8-16) 07/29/18 05:13 BUN 44 mg/dL (7-18) H 07/29/18 05:13 Creatinine 2.4 mg/dL (0.55-1.3) H 07/29/18 05:13 Creat Clearance w eGFR 19.96 (>60) 07/29/18 05:13 Random Glucose 170 mg/dL (74-106) H 07/29/18 05:13 Calcium 9.4 mg/dL (8.5-10.1) 07/29/18 05:13 Total Bilirubin 1.0 mg/dL (0.2-1) 07/28/18 22:10 AST 17 U/L (15-37) 07/28/18 22:10 ALT 25 U/L (13-61) 07/28/18 22:10 Alkaline Phosphatase 131 U/L (45-117) H 07/28/18 22:10 Total Protein 8.0 g/dl (6.4-8.2) 07/28/18 22:10 Albumin 3.9 g/dl (3.4-5.0) 07/28/18 22:10 CARDIAC ENZYMES Creatine Kinase 162 IU/L (26-192) 07/29/18 05:13 Current Medications Generic Name Dose Route Start Last Admin Trade Name Braydenq PRN Reason Stop Dose Admin Folic Acid 1 mg 07/29/18 10:00 Folic Acid - PO DAILY [facility] Heparin Sodium (Porcine) 5,000 unit 07/29/18 06:00 07/29/18 06:35 Heparin - SQ Not Given TID [facility] Sodium Chloride 1,000 mls @ 75 mls/hr 07/29/18 01:00 07/29/18 03:36 Normal Saline - IV 75 mls/hr ASDIR [facility] Administration Nicotine 14 mg 07/29/18 10:00 Nicoderm Patch - TD DAILY [facility] Thiamine HCl 100 mg 07/29/18 10:00 Vitamin B1 - PO DAILY [facility] Home Medications Medication Instructions Recorded Clonidine Patch [Catapres Tts 0.3 mg TD WEEKLY 07/25/18 Patch -] Ergocalciferol (Vitamin D2) 50,000 unit PO WEEKLY 07/25/18 [Vitamin D2] Hydrochlorothiazide [Hctz -] 25 mg PO DAILY 07/25/18 Losartan Potassium [Cozaar] 100 mg PO DAILY 07/25/18 Simvastatin [Zocor -] 20 mg PO HS 07/25/18 ASSESSMENT/PLAN: Patient is a 72yo Female with PMHx of HTN, polysubstance abuse, CAD, who presents to the ED for N/V, body aches and chills x 1 day duration. As per pt, she was in detox for the past three days at [facility], on methadone. #Opiate withdrawal on Detox protocol as per Detox MD. #Abdominal tenderness resolved. CT of abdomen and pelvis: no evidence of acute pathology. #KAROL due to dehydration. continue IVF. CPK within NL limit and Renal US normal , if no improvement will get Nephro. involved. #HTN continue to hold bp meds since its normotensive. #hx alcohol use continue thiamine and folic acid #hypokalemia improved repletd IV NS 75 cc/hr #PPX: Hep 5000 SQ TID Visit type - Emergency Visit Emergency Visit: Yes ED Registration Date: 07/28/18 Care time: The patient presented to the Emergency Department on the above date and was hospitalized for further evaluation of their emergent condition. - New Patient This patient is new to me today: Yes Date on this admission: 07/30/18 - Critical Care Critical Care patient: No - Discharge Referral Referred to [facility] Med P.C.: No
[2018-07-29] MEDS ORDERED: NICOTINE 14 MG/24 HOURS TOPICAL PATCH TD SCH (10:00)
[2018-07-29] MEDS: THIAMINE HCL 100 MG TABLET (FP) PO SCH ×2 (10:45→14:25)
[2018-07-29] MEDS: FOLIC ACID 1 MG TABLET (FP) PO SCH ×2 (10:45→14:25)
[2018-07-29] MEDS ORDERED: METHADONE HCL 10 MG TABLET PO ONE (11:45)
--- NOTE | 2018-07-29 11:56 | EKG ---
Test Reason : Blood Pressure : / mmHG Vent. Rate : 089 BPM Atrial Rate : 089 BPM P-R Int : 000 ms QRS Dur : 080 ms QT Int : 418 ms P-R-T Axes : 000 022 067 degrees QTc Int : 508 ms SINUS RHYTHM WITH OCCASIONAL PREMATURE VENTRICULAR COMPLEXES AND PREMATURE ATRIAL COMPLEXES PROLONGED QT ABNORMAL ECG WHEN COMPARED WITH ECG OF 26-JUL-2018 12:45, PREMATURE VENTRICULAR COMPLEXES ARE NOW PRESENT QT HAS LENGTHENED Confirmed by RAMÓN HAAS MD ([id number]) on 07/29/2018 11:55:45 AM Referred By: Confirmed By:RAMÓN HAAS MD
[2018-07-30] MEDS: SODIUM CHLORIDE 1,000 ML IV SCH (01:11)
[2018-07-30] MEDS: NICOTINE 14 MG/24 HOURS TOPICAL PATCH TD SCH ×2 (01:11→11:56)
[2018-07-30 04:15] LABS: URINE APPEARANCE SLCLOUDY; URINE BILIRUBIN NEGATIVE (<2.0 mg/dL); URINE COLOR AMBER; URINE GLUCOSE (UA) NEGATIVE (NEGATIVE); URINE KETONE NEGATIVE (NEGATIVE); URINE LEUK ESTERASE 2+ (NEGATIVE); URINE NITRITE NEGATIVE (NEGATIVE); URINE PROTEIN NEGATIVE (NEGATIVE)
[2018-07-30 04:21] LABS: EPI CELLS RARE /HPF (FEW); URINE BACTERIA RARE /hpf (NONE SEEN)
[2018-07-30] MEDS ORDERED: METHADONE HCL 5 MG TABLET PO ONE ×2 (06:00→11:30)
[2018-07-30] MEDS: HEPARIN NA (PORCINE) 5,000 UNITS/ML 1ML VIAL SQ SCH ×3 (06:17→21:40)
[2018-07-30] MEDS: THIAMINE HCL 100 MG TABLET (FP) PO SCH (10:27)
[2018-07-30] MEDS: FOLIC ACID 1 MG TABLET (FP) PO SCH (10:27)
--- NOTE | 2018-07-30 12:28 | PN ---
Physical Exam: SUBJECTIVE: Patient seen and examined no new complaints OBJECTIVE: Vital Signs Period Temp Pulse Resp BP Sys/Guerra Pulse Ox Last 24 Hr 97.3 F-98.5 F 59-82 20-22 105-123/43-61 99 GENERAL: The patient is awake, alert, and fully oriented, in no acute distress. HEAD: Normal with no signs of trauma. EYES: PERRL, extraocular movements intact, sclera anicteric, conjunctiva clear. No ptosis. ENT: Ears normal, nares patent, oropharynx clear without exudates, moist mucous membranes. NECK: Trachea midline, full range of motion, supple. LUNGS: decreased breath sounds HEART: Regular rate and rhythm, S1, S2 without murmur, rub or gallop. ABDOMEN: Soft, nontender, nondistended, normoactive bowel sounds, no guarding, no rebound, no hepatosplenomegaly, no masses. EXTREMITIES: 2+ pulses, warm, well-perfused, trace bilateral LE edema NEUROLOGICAL: Cranial nerves II through XII grossly intact. Normal speech, gait not observed. PSYCH: Normal mood, normal affect. SKIN: Warm, dry, normal turgor, no rashes or lesions noted Laboratory Results - last 24 hr 07/30/18 02:30 Urine Color Melissa Urine Appearance Slcloudy Urine pH 5.0 Ur Specific [place] 1.020 Urine Protein Negative Urine Glucose (UA) Negative Urine Ketones Negative Urine Blood Negative Urine Nitrite Negative Urine Bilirubin Negative Urine Urobilinogen 2.0 H Ur Leukocyte Esterase 2+ H Urine WBC (Auto) 3 Urine RBC (Auto) 2 Ur Epithelial Cells Rare Urine Bacteria Rare Active Medications Generic Name Dose Route Start Last Admin Trade Name Cecilio PRN Reason Stop Dose Admin Diazepam 2 mg 07/30/18 11:28 Valium - PO Q6H PRN ANXIETY/AGITATION Folic Acid 1 mg 07/29/18 10:00 07/30/18 10:27 Folic Acid - PO 1 mg DAILY [facility] Administration Heparin Sodium (Porcine) 5,000 unit 07/29/18 06:00 07/30/18 06:17 Heparin - SQ Not Given TID [facility] Sodium Chloride 1,000 mls @ 75 mls/hr 07/29/18 01:00 07/30/18 01:11 Normal Saline - IV Not Given ASDIR [facility] Nicotine 14 mg 07/30/18 01:00 07/30/18 11:56 Nicoderm Patch - TD 14 mg DAILY [facility] Administration Thiamine HCl 100 mg 07/29/18 10:00 07/30/18 10:27 Vitamin B1 - PO 100 mg DAILY [facility] Administration ASSESSMENT/PLAN: This is a 72 year old female with a history of CAD, current cocaine use, opiate dependence, who presents with n, v, d, chills. Opiate withdrawal. Continue to detox. Less lieky infectious process, although did have bouts of vomiting, r/o aspiration pna. Monitor cbc, vitals. Would repeat CXR if wbc rises, fever. #opiate withdrawal: -continue detox; on methadone -reji detox consults #abdominal pain: r/o infectious process -ct abdomen negative -most likely due to repeat vomiting #elevated creatinine; r/o acute vs chronic KAROL -creatinine 2.4 while here -get previous records -UA negative ; no protienuria -r/u creatinine -urine na, electrolytes -renal US normal kidneys; although one kidney significantly smaller -avoid nephrotoxic agents #prolonged OTC; -avoid qt prolonging agents -would repeat ekg #HTN: -stable off home meds for now Diet: clear; advance as tolerated VTE ppl: heparin sq Disposition: continue to monitor on floors detox; trend wbc, labs, nephrology evaluation Visit type - Emergency Visit Emergency Visit: Yes ED Registration Date: 07/28/18 Care time: The patient presented to the Emergency Department on the above date and was hospitalized for further evaluation of their emergent condition. - New Patient This patient is new to me today: Yes Date on this admission: 07/30/18 - Critical Care Critical Care patient: No
--- NOTE | 2018-07-30 15:52 | PN ---
Teaching Attending Note Name of Resident: Magy Davidson ATTENDING PHYSICIAN STATEMENT I saw and evaluated the patient. I reviewed the resident's note and discussed the case with the resident. I agree with the resident's findings and plan as documented. SUBJECTIVE: COMFORTABLE WITH NO ACUTE DISTRESS. OBJECTIVE: Vital Signs Temperature 97.4 F L 07/30/18 14:17 Pulse Rate 65 07/30/18 14:17 Respiratory Rate 22 H 07/30/18 14:17 Blood Pressure 108/52 L 07/30/18 14:17 O2 Sat by Pulse Oximetry (%) 99 07/29/18 21:00 GENERAL: NAD, AAOX3 HEAD: Normal with no signs of trauma. EYES: Pupils equal, round and reactive to light, extraocular movements intact EARS, NOSE, THROAT: Ears normal, oropharynx very dry NECK: Normal range of motion, supple LUNGS: Breath sounds equal, clear to auscultation bilaterally. No wheezes, and no crackles. HEART: Regular rate and rhythm, normal S1 and S2 without murmur, rub or gallop. ABDOMEN: Soft, NT,ND , normoactive bowel sounds, MUSCULOSKELETAL: Normal range of motion at all joints. EXTREMITIES: +dry, scaly. 2+ pt pulses, warm, well-perfused. No calf tenderness. No peripheral edema. NEUROLOGICAL: AA0x3, NFD, cN2-12 GROSSLY INTACT PSYCHIATRIC: Cooperative. SKIN: Warm, dry. CBCD WBC 12.9 K/mm3 (4.0-10.0) H 07/29/18 05:13 RBC 5.93 M/mm3 (3.60-5.2) H 07/29/18 05:13 Hgb 16.6 GM/dL (10.7-15.3) H 07/29/18 05:13 Hct 52.4 % (32.4-45.2) H 07/29/18 05:13 MCV 88.3 fl (80-96) 07/29/18 05:13 MCHC 31.7 g/dl (32.0-36.0) L 07/29/18 05:13 RDW 14.0 % (11.6-15.6) 07/29/18 05:13 Plt Count 220 K/MM3 (134-434) 07/29/18 05:13 MPV 9.0 fl (7.5-11.1) 07/29/18 05:13 CMP Sodium 136 mmol/L (136-145) 07/29/18 05:13 Potassium 4.1 mmol/L (3.5-5.1) 07/29/18 05:13 Chloride 98 mmol/L (98-107) 07/29/18 05:13 Carbon Dioxide 27 mmol/L (21-32) 07/29/18 05:13 Anion Gap 11 MMOL/L (8-16) 07/29/18 05:13 BUN 44 mg/dL (7-18) H 07/29/18 05:13 Creatinine 2.4 mg/dL (0.55-1.3) H 07/29/18 05:13 Creat Clearance w eGFR 19.96 (>60) 07/29/18 05:13 Random Glucose 170 mg/dL (74-106) H 07/29/18 05:13 Calcium 9.4 mg/dL (8.5-10.1) 07/29/18 05:13 Total Bilirubin 1.0 mg/dL (0.2-1) 07/28/18 22:10 AST 17 U/L (15-37) 07/28/18 22:10 ALT 25 U/L (13-61) 07/28/18 22:10 Alkaline Phosphatase 131 U/L (45-117) H 07/28/18 22:10 Total Protein 8.0 g/dl (6.4-8.2) 07/28/18 22:10 Albumin 3.9 g/dl (3.4-5.0) 07/28/18 22:10 CARDIAC ENZYMES Creatine Kinase 162 IU/L (26-192) 07/29/18 05:13 Current Medications Generic Name Dose Route Start Last Admin Trade Name Freq PRN Reason Stop Dose Admin Diazepam 2 mg 07/30/18 11:28 Valium - PO Q6H PRN ANXIETY/AGITATION Folic Acid 1 mg 07/29/18 10:00 07/30/18 10:27 Folic Acid - PO 1 mg DAILY [facility] Administration Heparin Sodium (Porcine) 5,000 unit 07/29/18 06:00 07/30/18 14:46 Heparin - SQ Not Given TID [facility] Sodium Chloride 1,000 mls @ 75 mls/hr 07/29/18 01:00 07/30/18 01:11 Normal Saline - IV Not Given ASDIR [facility] Nicotine 14 mg 07/30/18 01:00 07/30/18 11:56 Nicoderm Patch - TD 14 mg DAILY [facility] Administration Thiamine HCl 100 mg 07/29/18 10:00 07/30/18 10:27 Vitamin B1 - PO 100 mg DAILY [facility] Administration Home Medications Medication Instructions Recorded Clonidine Patch [Catapres Tts 0.3 mg TD WEEKLY 07/25/18 Patch -] Ergocalciferol (Vitamin D2) 50,000 unit PO WEEKLY 07/25/18 [Vitamin D2] Hydrochlorothiazide [Hctz -] 25 mg PO DAILY 07/25/18 Losartan Potassium [Cozaar] 100 mg PO DAILY 07/25/18 Simvastatin [Zocor -] 20 mg PO HS 07/25/18 ASSESSMENT AND PLAN: Patient is a 72yo Female with PMHx of HTN, polysubstance abuse, CAD, who presents to the ED for N/V, body aches and chills x 1 day duration. As per pt, she was in detox for the past three days at [facility], on methadone. #Opiate withdrawal on Detox protocol as per Detox MD. CONTINUE DETOX #Abdominal tenderness resolved. CT of abdomen and pelvis: no evidence of acute pathology. nO FURTHER ABDOMINAL PAIN. #KAROL WILL GET NEPHRO INVOLED SINCE CREATININE IS CONTINUES TO BE ELEVATED, continue IVF. CPK within NL limit and Renal US normal. nEPHRO CONSULT. #HTN continue to hold bp meds since its normotensive. #hx alcohol use continue thiamine and folic acid #hypokalemia improved repleted IV NS 75 cc/hr #PPX: Hep 5000 SQ TID
[2018-07-30 16:12] VITALS: BMI 35.0
[2018-07-31] MEDS: SODIUM CHLORIDE 1,000 ML IV SCH (03:32)
[2018-07-31] MEDS: HEPARIN NA (PORCINE) 5,000 UNITS/ML 1ML VIAL SQ SCH ×3 (05:39→21:04)
[2018-07-31] MEDS: diazePAM 2 MG TABLET PO PRN ×3 (06:08→23:22)
[2018-07-31 07:47] LABS: BASO % 0.8 % (0-2.0); HEMATOCRIT 46.5 % (32.4-45.2); HEMOGLOBIN 14.9 GM/dL (10.7-15.3); LYMPH % 34.9 % (8-40); MEAN CELL VOLUME 87.5 fl (80-96); MEAN PLT VOLUME 9.2 fl (7.5-11.1); MONO % 8.9 % (3.8-10.2); NEUT % 51.4 % (42.8-82.8); PLATELET COUNT 193 K/MM3 (134-434); RBC 5.31 M/mm3 (3.60-5.2); WHITE BLOOD COUNT 7.1 K/mm3 (4.0-10.0)
[2018-07-31 08:39] LABS: ALBUMIN 3.4 g/dl (3.4-5.0); ALK PHOS 115 U/L (45-117); ANION GAP 9 MMOL/L (8-16); BILIRUBIN,TOTAL 0.9 mg/dL (0.2-1); BLOOD UREA NITROGEN 49 mg/dL (7-18); CHLORIDE 98 mmol/L (98-107); CO2 28 mmol/L (21-32); CREATININE 1.3 mg/dL (0.55-1.3); GLUCOSE,RANDOM 135 mg/dL (74-106); MAGNESIUM 2.5 mg/dL (1.8-2.4); PHOSPHOROUS 3.3 mg/dL (2.5-4.9); POTASSIUM 3.4 mmol/L (3.5-5.1); SGOT/AST 17 U/L (15-37); SGPT/ALT 31 U/L (13-61); SODIUM 135 mmol/L (136-145)
[2018-07-31] MEDS ORDERED: POTASSIUM CHLORIDE TABS 20 MEQ TABLET.ER (FP) PO ONE (09:36)
[2018-07-31] MEDS: NICOTINE 14 MG/24 HOURS TOPICAL PATCH TD SCH (10:49)
[2018-07-31] MEDS: THIAMINE HCL 100 MG TABLET (FP) PO SCH (10:49)
[2018-07-31] MEDS: FOLIC ACID 1 MG TABLET (FP) PO SCH (10:49)
--- NOTE | 2018-07-31 10:49 | CONSULT ---
Consult - text type - Consultation Consultation Note: Renal consult for KAROL 72 y/o F with PMH HTN, polysubstance abuse, CAD, who presents to the ED for N/V , body aches and chills x 1 day duration with KAROL. PMHx: as above AllergieS: PCN Social Hx: Polysubstance abuse Family Hx: NC Home Medications Medication Instructions Recorded Clonidine Patch [Catapres Tts 0.3 mg TD WEEKLY 07/25/18 Patch -] Ergocalciferol (Vitamin D2) 50,000 unit PO WEEKLY 07/25/18 [Vitamin D2] Hydrochlorothiazide [Hctz -] 25 mg PO DAILY 07/25/18 Losartan Potassium [Cozaar] 100 mg PO DAILY 07/25/18 Simvastatin [Zocor -] 20 mg PO HS 07/25/18 Vital Signs Temperature 98.1 F 07/31/18 06:00 Pulse Rate 99 H 07/31/18 06:00 Respiratory Rate 20 07/31/18 06:00 Blood Pressure 94/50 L 07/31/18 06:00 O2 Sat by Pulse Oximetry (%) 97 07/30/18 21:00 Intake & Output 07/28/18 07/29/18 07/30/18 07/31/18 23:59 23:59 23:59 23:59 Intake Total 435 915 0 Balance 435 915 0 Weight 106.594 kg 101.877 kg 101.605 kg CBC, BMP 07/31/18 07:15 07/31/18 07:15 Laboratory Tests 07/28/18 07/29/18 07/31/18 22:10 05:13 07:15 Creatinine 2.4 H 2.4 H 1.3 Calcium 9.0 Phosphorus 3.3 Magnesium 2.5 H Albumin 3.4 Current Medications Diazepam (Valium -) 2 mg PO Q6H PRN PRN Reason: ANXIETY/AGITATION Last Admin: 07/31/18 06:08 Dose: 2 mg Folic Acid (Folic Acid -) 1 mg PO DAILY [facility] Last Admin: 07/31/18 10:49 Dose: 1 mg Heparin Sodium (Porcine) (Heparin -) 5,000 unit SQ TID [facility] Last Admin: 07/31/18 05:39 Dose: Not Given Sodium Chloride (Normal Saline -) 1,000 mls @ 75 mls/hr IV ASDIR [facility] Last Admin: 07/31/18 03:32 Dose: Not Given Nicotine (Nicoderm Patch -) 14 mg TD DAILY [facility] Last Admin: 07/31/18 10:49 Dose: 14 mg Thiamine HCl (Vitamin B1 -) 100 mg PO DAILY [facility] Last Admin: 07/31/18 10:49 Dose: 100 mg 72 y/o F with PMH HTN, polysubstance abuse, CAD, who presents to the ED for N/V , body aches and chills x 1 day duration with KAROL. #KAROL secondary to volume depletion (low FeNa, high BUN/Cr ratio, US of kidney w/ o obstruction) #Withdrawl #Mild Hypokalemia Renal function with improvement noted today continue moderate IVF Supplament KCL with goal K > 3.5 check Mg levels, goal ~2 Trend renal function and electrolytes Messi Shirley DO
--- NOTE | 2018-07-31 12:57 | PN ---
[facility] Progress Note (SOAP) Subjective: [facility] Addiction medicine consult : 72 y.o. female patient referred for complaints of continued withdrawal symptoms, patient reports feeling uncomfortable, some nausea, sweating/ chills , tremors , anxiety, restlessness . Last Methadone yesterday 5 mg @ 6 am and 5 mg during the day , and 2 mg Diazepam q 6 hrs prn . Per patient she felt much better with methadone yesterday . Overall improved from prior symptoms while at [facility] detox. Objective: 07/31/18 12:54 wnwd, resting in bed , restless, moderate distress. Vital Signs - 24 hr 07/30/18 07/30/18 07/30/18 14:17 18:00 21:00 Temperature 97.4 F L 97.6 F Pulse Rate 65 83 Respiratory 22 H 20 Rate Blood Pressure 108/52 L 131/69 O2 Sat by Pulse 97 Oximetry (%) 07/31/18 07/31/18 02:00 06:00 Temperature 98.2 F 98.1 F Pulse Rate 69 99 H Respiratory 20 20 Rate Blood Pressure 109/46 L 94/50 L O2 Sat by Pulse Oximetry (%) Assessment: 07/31/18 12:54 opiate dependence in withdrawal Plan: Methadone 5 mg x one now and 5 mg tomorrow @ 6 am. discussed with patient , verbalizes agreement with POC.
[2018-07-31] MEDS ORDERED: METHADONE HCL 5 MG TABLET PO ONE (13:15)
--- NOTE | 2018-07-31 15:34 | PN ---
Physical Exam: SUBJECTIVE: Patient is a 72 y/o female with a history of polysubstance abuse and CAD who is here for withdrawal. Patient reports she does not think she is getting enough methadone and still feels unwell. Patient wishes to return to [facility], but there are no female beds open. OBJECTIVE: Vital Signs Temperature 98.1 F 07/31/18 06:00 Pulse Rate 99 H 07/31/18 06:00 Respiratory Rate 20 07/31/18 06:00 Blood Pressure 94/50 L 07/31/18 06:00 O2 Sat by Pulse Oximetry (%) 97 07/30/18 21:00 GENERAL: The patient is awake, alert, and fully oriented, in no acute distress. HEAD: Normal with no signs of trauma. EYES: PERRL, extraocular movements intact ENT: moist mucous membranes. LUNGS: clear to auscultation HEART: Regular rate and rhythm, S1, S2 without murmur, rub or gallop. ABDOMEN: Soft, nontender, nondistended, normoactive bowel sounds, EXTREMITIES: 2+ pulses, warm, well-perfused, trace bilateral LE edema PSYCH: Normal mood, normal affect. SKIN: Warm, dry, normal turgor, no rashes or lesions noted CBC, BMP 07/31/18 07:15 07/31/18 07:15 Active Medications Diazepam (Valium -) 2 mg PO Q6H PRN PRN Reason: ANXIETY/AGITATION Last Admin: 07/31/18 14:42 Dose: 2 mg Folic Acid (Folic Acid -) 1 mg PO DAILY [facility] Last Admin: 07/31/18 10:49 Dose: 1 mg Heparin Sodium (Porcine) (Heparin -) 5,000 unit SQ TID [facility] Last Admin: 07/31/18 13:41 Dose: Not Given Sodium Chloride (Normal Saline -) 1,000 mls @ 75 mls/hr IV ASDIR [facility] Last Admin: 07/31/18 03:32 Dose: Not Given Methadone HCl (Dolophine -) 5 mg PO DAILY@0600 [facility] Stop: 08/02/18 05:59 Nicotine (Nicoderm Patch -) 14 mg TD DAILY [facility] Last Admin: 07/31/18 10:49 Dose: 14 mg Thiamine HCl (Vitamin B1 -) 100 mg PO DAILY [facility] Last Admin: 07/31/18 10:49 Dose: 100 mg ASSESSMENT/PLAN: Patient is a 72 y/o female with a history of polysubstance abuse and CAD who is here for withdrawal. #withdrawal from polysubstance abuse - patient seen by detox today, 5 mg methadone given - patient wants to go back to [facility] tomorrow - patient condition improved - continue to monitor vitals #abdominal pain : resolved - CT abdomen shows no acute process #elevated Creatinine: resolved - 2.4> 1.3 - Dr. Shirley: likely KAROL - continue IVF NS @ 75 #FEN - hypokalemia, repleted , f/u tomorrow - check Mg level tomorrow Dispo: Can go to [facility] tomorrow, needs a bed Visit type - Emergency Visit Emergency Visit: No - New Patient This patient is new to me today: Yes Date on this admission: 07/31/18 - Critical Care Critical Care patient: No
--- NOTE | 2018-07-31 20:13 | PN ---
Teaching Attending Note Name of Resident: Ursula Hubbard ATTENDING PHYSICIAN STATEMENT I saw and evaluated the patient. I reviewed the resident's note and discussed the case with the resident. I agree with the resident's findings and plan as documented. SUBJECTIVE: Patient is feeling better but continues to have withdrawel symptoms. OBJECTIVE: Vital Signs Temperature 98.2 F 07/31/18 15:30 Pulse Rate 103 H 07/31/18 15:30 Respiratory Rate 18 07/31/18 15:30 Blood Pressure 152/87 07/31/18 15:30 O2 Sat by Pulse Oximetry (%) 97 07/31/18 09:00 GENERAL: NAD, AAOX3 HEAD: Normal with no signs of trauma. EYES: Pupils equal, round and reactive to light, extraocular movements intact EARS, NOSE, THROAT: Ears normal, oropharynx very dry NECK: Normal range of motion, supple LUNGS: Breath sounds equal, clear to auscultation bilaterally. No wheezes, and no crackles. HEART: Regular rate and rhythm, normal S1 and S2 without murmur, rub or gallop. ABDOMEN: Soft, NT,ND , normoactive bowel sounds, MUSCULOSKELETAL: Normal range of motion at all joints. EXTREMITIES: pulses are positive. No calf tenderness. No peripheral edema. NEUROLOGICAL: AA0x3, NFD, cN2-12 [employer]IC: Cooperative. SKIN: Warm, dry. CBCD WBC 7.1 K/mm3 (4.0-10.0) 07/31/18 07:15 RBC 5.31 M/mm3 (3.60-5.2) H 07/31/18 07:15 Hgb 14.9 GM/dL (10.7-15.3) 07/31/18 07:15 Hct 46.5 % (32.4-45.2) H 07/31/18 07:15 MCV 87.5 fl (80-96) 07/31/18 07:15 MCHC 32.0 g/dl (32.0-36.0) 07/31/18 07:15 RDW 14.0 % (11.6-15.6) 07/31/18 07:15 Plt Count 193 K/MM3 (134-434) 07/31/18 07:15 MPV 9.2 fl (7.5-11.1) 07/31/18 07:15 CMP Sodium 135 mmol/L (136-145) L 07/31/18 07:15 Potassium 3.4 mmol/L (3.5-5.1) L 07/31/18 07:15 Chloride 98 mmol/L (98-107) 07/31/18 07:15 Carbon Dioxide 28 mmol/L (21-32) 07/31/18 07:15 Anion Gap 9 MMOL/L (8-16) 07/31/18 07:15 BUN 49 mg/dL (7-18) H 07/31/18 07:15 Creatinine 1.3 mg/dL (0.55-1.3) 07/31/18 07:15 Creat Clearance w eGFR 40.49 (>60) 07/31/18 07:15 Random Glucose 135 mg/dL (74-106) H 07/31/18 07:15 Calcium 9.0 mg/dL (8.5-10.1) 07/31/18 07:15 Total Bilirubin 0.9 mg/dL (0.2-1) 07/31/18 07:15 AST 17 U/L (15-37) 07/31/18 07:15 ALT 31 U/L (13-61) 07/31/18 07:15 Alkaline Phosphatase 115 U/L (45-117) 07/31/18 07:15 Total Protein 7.0 g/dl (6.4-8.2) 07/31/18 07:15 Albumin 3.4 g/dl (3.4-5.0) 07/31/18 07:15 CARDIAC ENZYMES Creatine Kinase 88 IU/L (26-192) 07/31/18 07:15 Current Medications Generic Name Dose Route Start Last Admin Trade Name Braydenq PRN Reason Stop Dose Admin Diazepam 2 mg 07/30/18 11:28 07/31/18 14:42 Valium - PO 2 mg Q6H PRN Administration ANXIETY/AGITATION Folic Acid 1 mg 07/29/18 10:00 07/31/18 10:49 Folic Acid - PO 1 mg DAILY [facility] Administration Heparin Sodium (Porcine) 5,000 unit 07/29/18 06:00 07/31/18 13:41 Heparin - SQ Not Given TID [facility] Sodium Chloride 1,000 mls @ 75 mls/hr 07/29/18 01:00 07/31/18 03:32 Normal Saline - IV Not Given ASDIR [facility] Methadone HCl 5 mg 08/01/18 06:00 Dolophine - PO 08/02/18 05:59 DAILY@0600 [facility] Nicotine 14 mg 07/30/18 01:00 07/31/18 10:49 Nicoderm Patch - TD 14 mg DAILY [facility] Administration Thiamine HCl 100 mg 07/29/18 10:00 07/31/18 10:49 Vitamin B1 - PO 100 mg DAILY [facility] Administration Home Medications Medication Instructions Recorded Clonidine Patch [Catapres Tts 0.3 mg TD WEEKLY 07/25/18 Patch -] Ergocalciferol (Vitamin D2) 50,000 unit PO WEEKLY 07/25/18 [Vitamin D2] Hydrochlorothiazide [Hctz -] 25 mg PO DAILY 07/25/18 Losartan Potassium [Cozaar] 100 mg PO DAILY 07/25/18 Simvastatin [Zocor -] 20 mg PO HS 07/25/18 ASSESSMENT AND PLAN: Patient is a 72yo Female with PMHx of HTN, polysubstance abuse, CAD, who presents to the ED for N/V, body aches and chills x 1 day duration. As per pt, she was in detox for the past three days at [facility], on methadone. #Opiate withdrawal on Detox protocol as per Detox MD. CONTINUE DETOX #KAROL from 2.4--2.4-->1.3 today. nephro consult appreciated. continue IVF. CPK within NL limit and Renal US normal. nEPHRO CONSULT. #Abdominal tenderness resolved. CT of abdomen and pelvis: no evidence of acute pathology. nO FURTHER ABDOMINAL PAIN. #HTN continue to hold bp meds since its normotensive. #hx alcohol use continue thiamine and folic acid #hypokalemia improved repleted #PPX: Hep 5000 SQ TID patient can be discharged back to rehab if bed available.
[2018-08-01] MEDS ORDERED: METHADONE HCL 5 MG TABLET PO SCH (06:00)
[2018-08-01] MEDS: HEPARIN NA (PORCINE) 5,000 UNITS/ML 1ML VIAL SQ SCH (06:23)
[2018-08-01] MEDS: SODIUM CHLORIDE 1,000 ML IV SCH (06:24)
[2018-08-01 06:56] LABS: HEMATOCRIT 44.6 % (32.4-45.2); HEMOGLOBIN 14.2 GM/dL (10.7-15.3); MCH 28.1 pg (25.7-33.7); MCHC 31.9 g/dl (32.0-36.0); MEAN CELL VOLUME 88.1 fl (80-96); MEAN PLT VOLUME 9.1 fl (7.5-11.1); PLATELET COUNT 221 K/MM3 (134-434); RBC 5.06 M/mm3 (3.60-5.2); RDW 13.6 % (11.6-15.6); WHITE BLOOD COUNT 8.5 K/mm3 (4.0-10.0)
[2018-08-01 07:25] LABS: ALBUMIN 3.4 g/dl (3.4-5.0); ALK PHOS 124 U/L (45-117); ANION GAP 6 MMOL/L (8-16); BILIRUBIN,TOTAL 0.7 mg/dL (0.2-1); BLOOD UREA NITROGEN 30 mg/dL (7-18); CALCIUM 8.9 mg/dL (8.5-10.1); CHLORIDE 102 mmol/L (98-107); CO2 30 mmol/L (21-32); CREATININE 1.1 mg/dL (0.55-1.3); GLUCOSE,RANDOM 147 mg/dL (74-106); MAGNESIUM 2.2 mg/dL (1.8-2.4); PHOSPHOROUS 2.8 mg/dL (2.5-4.9); POTASSIUM 4.4 mmol/L (3.5-5.1); SGOT/AST 17 U/L (15-37); SGPT/ALT 32 U/L (13-61); SODIUM 137 mmol/L (136-145); TOT PROT 7.3 g/dl (6.4-8.2)
--- NOTE | 2018-08-01 09:30 | DS ---
Physical Exam: SUBJECTIVE: Patient is a 72 y/o female with a history of polysubstance abuse and CAD who is here for withdrawal. Patient reports she is feeling better. She is interested in going to rehab. OBJECTIVE: Vital Signs Temperature 98.3 F 08/01/18 06:00 Pulse Rate 66 08/01/18 06:00 Respiratory Rate 20 08/01/18 06:00 Blood Pressure 151/75 08/01/18 06:00 O2 Sat by Pulse Oximetry (%) 97 07/31/18 21:00 PHYSICAL EXAM GENERAL: The patient is awake, alert, and fully oriented, in no acute distress. HEAD: Normal with no signs of trauma. EYES: PERRL, extraocular movements intact ENT: moist mucous membranes. LUNGS: clear to auscultation HEART: Regular rate and rhythm, S1, S2 without murmur, rub or gallop. ABDOMEN: Soft, nontender, nondistended, normoactive bowel sounds, EXTREMITIES: 2+ pulses, warm, well-perfused, trace bilateral LE edema PSYCH: Normal mood, normal affect. SKIN: Warm, dry, normal turgor, no rashes or lesions noted LABS CBC, BMP 08/01/18 06:30 08/01/18 06:30 HOSPITAL COURSE: Date of Admission:07/28/18 Patient was admitted to the hospital for withdrawl. Her COWS score on presentation was 9. She had been in [facility] for three days previous for detox. Patient continued her detox while here. Patient was found to have a prolonged QTC and her methadone was held for one day and she was given Valium. Spoke with Dr. Lozada and patient has completed her 5 days of detox. Spoke with Dr. Aguirre and patient can go to [facility] facility. Patient presented with KAROL that has resolved with fluids. Patient saw Dr. Shirley and was advised to avoid nephrotoxic agents. UCX: diptheroid: normal romeo, asymptomatic CXR: large heart, scoliosis ABD/pelvis CT: no acute pathology Renal US: no hydronephrois, normal kidneys Date of Discharge: 08/01/18 Minutes to complete discharge: 38 Discharge Summary Reason For Visit: ACUTE KIDNEY INJURY;COCAINE WITHDRAWAL Current Active Problems Opioid withdrawal (Chronic) Condition: Improved - Instructions Diet, Activity, Other Instructions: You came to the hospital from [facility] for withdrawal from cocaine and heroin. We treated you with medication to help your withdrawal symptoms. You will return to [facility] to continue rehab. Please follow up with the director digital catalogue, Dr. Shirley, within one week. You should follow up with your primary care physician in one week. You should continue to take your home medications as prescribed. Please return to the Emergency Department if you have any chest pain, nausea, shortness of breath, or dizziness. Referrals: Klarissa Villegas MD [Primary Care Provider] - Messi Shirley MD [Staff Physician] - Disposition: PRISON FACILITY - Home Medications Comprehensive Discharge Medication List: Ambulatory Orders Clonidine Patch [Catapres Tts Patch -] 0.3 mg TD WEEKLY 07/25/18 Ergocalciferol (Vitamin D2) [Vitamin D2] 50,000 unit PO WEEKLY 07/25/18 Hydrochlorothiazide [Hctz -] 25 mg PO DAILY 07/25/18 Losartan Potassium [Cozaar] 100 mg PO DAILY 07/25/18 Simvastatin [Zocor -] 20 mg PO HS 07/25/18 This patient is new to me today: No Emergency Visit: No Critical Care patient: No - Discharge Referral Referred to [facility] No
--- NOTE | 2018-08-01 09:31 | PN ---
Teaching Attending Note Name of Resident: Ursula Hubbard ATTENDING PHYSICIAN STATEMENT I saw and evaluated the patient. I reviewed the resident's note and discussed the case with the resident. I agree with the resident's findings and plan as documented. SUBJECTIVE: Patient is comfortable with no acute distress. No nausea or vomiting. OBJECTIVE: Vital Signs Temperature 98.3 F 08/01/18 06:00 Pulse Rate 66 08/01/18 06:00 Respiratory Rate 20 08/01/18 06:00 Blood Pressure 151/75 08/01/18 06:00 O2 Sat by Pulse Oximetry (%) 97 07/31/18 21:00 GENERAL: NAD, AAOX3 HEAD: Normal with no signs of trauma. EYES: Pupils equal, round and reactive to light, extraocular movements intact EARS, NOSE, THROAT: Ears normal, mmm NECK: Normal range of motion, supple LUNGS: Breath sounds equal, clear to auscultation bilaterally. No wheezes, and no crackles. HEART: Regular rate and rhythm, normal S1 and S2 without murmur, rub or gallop. ABDOMEN: Soft, NT,ND , normoactive bowel sounds, EXTREMITIES: pulses are positive. No calf tenderness. No peripheral edema. NEUROLOGICAL: AA0x3, NFD, cN2-12 [employer] INTACT PSYCHIATRIC: Cooperative. SKIN: Warm, dry. CBCD WBC 8.5 K/mm3 (4.0-10.0) 08/01/18 06:30 RBC 5.06 M/mm3 (3.60-5.2) 08/01/18 06:30 Hgb 14.2 GM/dL (10.7-15.3) 08/01/18 06:30 Hct 44.6 % (32.4-45.2) 08/01/18 06:30 MCV 88.1 fl (80-96) 08/01/18 06:30 MCHC 31.9 g/dl (32.0-36.0) L 08/01/18 06:30 RDW 13.6 % (11.6-15.6) 08/01/18 06:30 Plt Count 221 K/MM3 (134-434) 08/01/18 06:30 MPV 9.1 fl (7.5-11.1) 08/01/18 06:30 CMP Sodium 137 mmol/L (136-145) 08/01/18 06:30 Potassium 4.4 mmol/L (3.5-5.1) 08/01/18 06:30 Chloride 102 mmol/L (98-107) 08/01/18 06:30 Carbon Dioxide 30 mmol/L (21-32) 08/01/18 06:30 Anion Gap 6 MMOL/L (8-16) L 08/01/18 06:30 BUN 30 mg/dL (7-18) H 08/01/18 06:30 Creatinine 1.1 mg/dL (0.55-1.3) 08/01/18 06:30 Creat Clearance w eGFR 49.10 (>60) 08/01/18 06:30 Random Glucose 147 mg/dL (74-106) H 08/01/18 06:30 Calcium 8.9 mg/dL (8.5-10.1) 08/01/18 06:30 Total Bilirubin 0.7 mg/dL (0.2-1) 08/01/18 06:30 AST 17 U/L (15-37) 08/01/18 06:30 ALT 32 U/L (13-61) 08/01/18 06:30 Alkaline Phosphatase 124 U/L (45-117) H 08/01/18 06:30 Total Protein 7.3 g/dl (6.4-8.2) 08/01/18 06:30 Albumin 3.4 g/dl (3.4-5.0) 08/01/18 06:30 CARDIAC ENZYMES Creatine Kinase 88 IU/L (26-192) 07/31/18 07:15 Current Medications Generic Name Dose Route Start Last Admin Trade Name Cecilio PRN Reason Stop Dose Admin Diazepam 2 mg 07/30/18 11:28 07/31/18 23:22 Valium - PO 2 mg Q6H PRN Administration ANXIETY/AGITATION Folic Acid 1 mg 07/29/18 10:00 07/31/18 10:49 Folic Acid - PO 1 mg DAILY [facility] Administration Heparin Sodium (Porcine) 5,000 unit 07/29/18 06:00 08/01/18 06:23 Heparin - SQ Not Given TID [facility] Sodium Chloride 1,000 mls @ 75 mls/hr 07/29/18 01:00 08/01/18 06:24 Normal Saline - IV Not Given ASDIR [facility] Methadone HCl 5 mg 08/01/18 06:00 08/01/18 06:23 Dolophine - PO 08/02/18 05:59 5 mg DAILY@0600 [facility] Administration Nicotine 14 mg 07/30/18 01:00 07/31/18 10:49 Nicoderm Patch - TD 14 mg DAILY [facility] Administration Thiamine HCl 100 mg 07/29/18 10:00 07/31/18 10:49 Vitamin B1 - PO 100 mg DAILY [facility] Administration Home Medications Medication Instructions Recorded Clonidine Patch [Catapres Tts 0.3 mg TD WEEKLY 07/25/18 Patch -] Ergocalciferol (Vitamin D2) 50,000 unit PO WEEKLY 07/25/18 [Vitamin D2] Hydrochlorothiazide [Hctz -] 25 mg PO DAILY 07/25/18 Losartan Potassium [Cozaar] 100 mg PO DAILY 07/25/18 Simvastatin [Zocor -] 20 mg PO HS 07/25/18 ASSESSMENT AND PLAN: Patient is a 72yo Female with PMHx of HTN, polysubstance abuse, CAD, who presents to the ED for N/V, body aches and chills x 1 day duration. As per pt, she was in detox for the past three days at [facility], on methadone. #Opiate withdrawal on Detox protocol as per Detox MD. CONTINUE DETOX #KAROL from 2.4--2.4-->1.3 today. nephro consult appreciated. continue IVF. CPK within NL limit and Renal US normal. nEPHRO CONSULT. #Abdominal tenderness resolved. CT of abdomen and pelvis: no evidence of acute pathology. nO FURTHER ABDOMINAL PAIN. #HTN continue to hold bp meds since its normotensive. #hx alcohol use continue thiamine and folic acid #hypokalemia improved repleted #PPX: Hep 5000 SQ TID patient can be discharged back to rehab if bed available.
--- NOTE | 2018-08-01 10:53 | PN ---
Progress Note (short form) - Note Progress Note: Renal follow up for KAROL Vital Signs Temperature 98.3 F 08/01/18 06:00 Pulse Rate 66 08/01/18 06:00 Respiratory Rate 20 08/01/18 06:00 Blood Pressure 151/75 08/01/18 06:00 O2 Sat by Pulse Oximetry (%) 97 07/31/18 21:00 Intake & Output 07/29/18 07/30/18 07/31/18 08/01/18 23:59 23:59 23:59 23:59 Intake Total 435 915 870 Balance 435 915 870 Weight 101.877 kg 101.605 kg CBC, BMP 08/01/18 06:30 08/01/18 06:30 Current Medications Diazepam (Valium -) 2 mg PO Q6H PRN PRN Reason: ANXIETY/AGITATION Last Admin: 07/31/18 23:22 Dose: 2 mg Folic Acid (Folic Acid -) 1 mg PO DAILY [facility] Last Admin: 07/31/18 10:49 Dose: 1 mg Heparin Sodium (Porcine) (Heparin -) 5,000 unit SQ TID [facility] Last Admin: 08/01/18 06:23 Dose: Not Given Sodium Chloride (Normal Saline -) 1,000 mls @ 75 mls/hr IV ASDIR [facility] Last Admin: 08/01/18 06:24 Dose: Not Given Methadone HCl (Dolophine -) 5 mg PO DAILY@0600 [facility] Stop: 08/02/18 05:59 Last Admin: 08/01/18 06:23 Dose: 5 mg Nicotine (Nicoderm Patch -) 14 mg TD DAILY [facility] Last Admin: 07/31/18 10:49 Dose: 14 mg Thiamine HCl (Vitamin B1 -) 100 mg PO DAILY [facility] Last Admin: 07/31/18 10:49 Dose: 100 mg 72 y/o F with PMH HTN, polysubstance abuse, CAD, who presents to the ED for N/V , body aches and chills x 1 day duration with KAROL. #KAROL secondary to volume depletion (low FeNa, high BUN/Cr ratio, US of kidney w/ o obstruction) #Withdrawl #Mild Hypokalemia Messi Shirley DO
[2018-08-01] MEDS: FOLIC ACID 1 MG TABLET (FP) PO SCH (11:02)
[2018-08-01] MEDS: THIAMINE HCL 100 MG TABLET (FP) PO SCH (11:02)
[2018-08-01] MEDS: NICOTINE 14 MG/24 HOURS TOPICAL PATCH TD SCH (11:02)
[2018-08-01 11:07] VITALS: BP 112/60; PULSE 87; TEMP 97.9
== END 2018-08-01 11:50 | disposition other institution (70) | DRG 683 ==
LOC: JER 18:06 → JERBED 23:03 → J5S 07-29 05:45
PROVIDERS: ADMIT Internal Medicine; ATTEND Internal Medicine
DX: N17.9 Acute kidney failure, unspecified (principal); F11.23 Opioid dependence with withdrawal; I10 Essential (primary) hypertension; I25.10 Atherosclerotic heart disease of native coronary artery without angina pectoris; K21.9 Gastro-esophageal reflux disease without esophagitis; E87.6 Hypokalemia; F17.210 Nicotine dependence, cigarettes, uncomplicated; E66.9 Obesity, unspecified; Z68.35 Body mass index [BMI] 35.0-35.9, adult; F10.10 Alcohol abuse, uncomplicated; E86.0 Dehydration; I45.81 Long QT syndrome; F19.10 Other psychoactive substance abuse, uncomplicated; Z88.0 Allergy status to penicillin
CPT/HCPCS: 36415; 71045-TC-FY; 74176-TC; 76775-TC; 80048; 80053; 81003; 81015; 82436; 82550; 82553; 82570; 83735; 84100; 84133; 84300; 85025; 85027; 87077; 87086; 93005; 93010; 99284-25; J0131; J1644; J7030

== ENCOUNTER 2018-08-01 11:49 | Inpatient (IN) | payer OTHER ==
[2018-08-01 12:59] VITALS: BMI 36.0
--- NOTE | 2018-08-01 13:03 | HP ---
CIWA Score - Admission Criteria [facility] Guidelines: Admission for Medically Managed Detox: Requires at least one of the followin. CIWA greater than 12 2. Seizures within the past 24 hours 3. Delirium tremens within the past 24 hours 4. Hallucinations within the past 24 hours 5. Acute intervention needed for co occurring medical disorder 6. Acute intervention needed for co occurring psychiatric disorder 7. Severe withdrawal that cannot be handled at a lower level of care (continued vomiting, continued diarrhea, abnormal vital signs) requiring intravenous medication and/or fluids 8. Admission ROS [facility] - [facility] Chief Complaint: PATIENT PRESENTS FOR REHAB SERVICES FOR HEROIN AND MARIJUANA DEPENDENCE. Allergies/Adverse Reactions: Allergies Allergy/AdvReac Type Severity Reaction Status Date / Time Penicillins Allergy Severe unknown Verified 08/01/18 13:11 History of Present Illness: PATIENT RECENTLY ADMITTED TO [facility] 07/27/18 FOR DETOX FROM HEROIN. DURING ADMISSION, PATIENT BECAME LETHARGIC AND TRANSFERRED TO [facility] FOR EVALUATION. PATIENT NOTED WITH ELEVATED BUN/CR AND WAS ADMITTED TO [facility] FOR HYDRATION AND CONTINUED MEDICAL TREATMENT. PATIENT WAS RESUMED ON METHADONE DETOX DURING HOSPITALIZATION AND COMPLETED DETOX THIS MORNING. PATIENT HAS HISTORY OF HEROIN USE SINCE AGE 35 AND SNIFFS UP TO 6-8 BAGS OF HEROIN DAILY. +BLACKOUTS AND FALLS. DENIES H/O OVERDOSE AND IVDA. ALSO SMOKES MARIJUANA 1-3 TIMES PER MONTH AND +SMOKING COCAINE USE. . PMH INCLUDES CAD, TOBACCO USE, DEPRESSION AND HTN. DENIES SI/HI AND SUICIDE ATTEMPTS. THIS IS PATIENTS FIRST ADMISSION TO DETOX AND REHAB. Exam Limitations: No Limitations - Ebola screening Have you traveled outside of the country in the last 21 days: No Have you had contact with anyone from an Ebola affected area: No Do you have a fever: No - Review of Systems Constitutional: Chills, Night Sweats, Changes in sleep EENT: reports: Recent change in vision ([place]) Respiratory: reports: No Symptoms reported Cardiac: reports: Edema GI: reports: Diarrhea, Abdominal cramping : reports: No Symptoms Reported Musculoskeletal: reports: Back Pain, Joint Pain, Muscle Pain Integumentary: reports: Sweating Neuro: reports: Numbness, Tingling Endocrine: reports: No Symptoms Reported Hematology: reports: No Symptoms Reported Psychiatric: reports: Orientated x3, Depressed Patient History - Patient Medical History Hx Anemia: No Hx Asthma: No Hx Chronic Obstructive Pulmonary Disease (COPD): No Hx Cancer: No Hx Cardiac Disorders: Yes (CAD) Hx Congestive Heart Failure: No Hx Hypertension: Yes Hx Hypercholesterolemia: Yes Hx Pacemaker: No HX Cerebrovascular Accident: No Hx Seizures: No Hx Dementia: No Hx Diabetes: No Hx Gastrointestinal Disorders: Yes (acid reflux) Hx Liver Disease: No Hx Genitourinary Disorders: No Hx Sexually Transmitted Disorders: No Hx Renal Disease (ESRD): No Hx Thyroid Disease: No Hx Human Immunodeficiency Virus (HIV): No (tested negative 12/2017) Hx Hepatitis C: No Hx Depression: Yes Hx Suicide Attempt: No Hx Bipolar Disorder: No Hx Schizophrenia: No - Patient Surgical History Past Surgical History: Yes Hx Neurologic Surgery: No Hx Cataract Extraction: No Hx Cardiac Surgery: No Hx Lung Surgery: No Hx Breast Surgery: No Hx Breast Biopsy: No Hx Abdominal Surgery: Yes (hysterectomy (fibroid tumors) in 1988) Hx Appendectomy: No Hx Cholecystectomy: No Hx Genitourinary Surgery: No Hx Section: No Hx Orthopedic Surgery: No Hx Hysterectomy: Yes (1988) Anesthesia Reaction: No - PPD History Previous Implant?: Yes Documented Results: Negative w/proof Date: 07/27/18 PPD to be Administered?: No - Reproductive History Patient is a Female of Child Bearing Age (11 -55 yrs old): No Patient : No - Smoking Cessation Smoking history: Current every day smoker Have you smoked in the past 12 months: Yes Aproximately how many cigarettes per day: 20 Hx Chewing Tobacco Use: No Initiated information on smoking cessation: Yes 'Breaking Loose' booklet given: 08/01/18 - Substance & Tx. History Hx Alcohol Use: No Hx Substance Use: Yes Substance Use Type: Heroin, Marijuana Hx Substance Use Treatment: Yes - Substances Abused Marijuana/Hashish Frequency: 1-3 times last 30 days Age of first use: 14 Date of Last Use: 07/15/18 Heroin Route: Inhalation Frequency: Daily Amount used: 15 bags Age of first use: 35 Date of Last Use: 07/27/18 Cocaine Route: Inhalation Frequency: Daily Amount used: $100 Age of first use: 35 Date of Last Use: 07/24/18 Family Disease History - Family Disease History Family Disease History: Heart Disease: Mother (htn,CAD), Other: Father (ETOH abuse , liver cirrhosis ), Sister (htn, heart disease ) Admission Physical Exam [facility] - Physical General Appearance: Yes: No Apparent Distress, Nourished, Appropriately Dressed , Obese HEENTM: Yes: EOMI, Hearing grossly Normal, Normocephalic, Normal Voice, JOHN, Pharynx Normal Respiratory: Yes: Chest Non-Tender, Lungs Clear, Normal Breath Sounds, No Respiratory Distress, No Accessory Muscle Use Neck: Yes: No masses,lesions,Nodules, Supple, Trachea in good position Breast: Yes: Breast Exam Deferred Cardiology: Yes: Regular Rhythm, Regular Rate, S1, S2, Edema Abdominal: Yes: Normal Bowel Sounds, Non Tender, Soft Genitourinary: Yes: Within Normal Limits Back: Yes: Normal Inspection, Muscle Spasm Musculoskeletal: Yes: full range of Motion, Gait Steady, Back pain, Muscle Pain Extremities: Yes: Normal Inspection, Normal Range of Motion, Non-Tender, Swelling Neurological: Yes: legal billing clerk II-XII NML intact, Fully Oriented, Alert, Normal Response , Depressed Affect Integumentary: Yes: Normal Color, Dry, Warm Lymphatic: Yes: Within Normal Limits - Diagnostic (1) Opioid dependence Current Visit: Yes Status: Chronic Qualifiers: Substance use status: uncomplicated Qualified Code(s): F11.20 - Opioid dependence, uncomplicated (2) Marijuana dependence Current Visit: Yes Status: Chronic (3) Cocaine dependence Current Visit: Yes Status: Chronic Qualifiers: Substance use status: uncomplicated Qualified Code(s): F14.20 - Cocaine dependence, uncomplicated (4) Hypertension Current Visit: Yes Status: Chronic Qualifiers: Hypertension type: essential hypertension Qualified Code(s): I10 - Essential (primary) hypertension (5) Nicotine dependence Current Visit: Yes Status: Chronic Qualifiers: Nicotine product type: cigarettes Substance use status: uncomplicated Qualified Code(s): F17.210 - Nicotine dependence, cigarettes, uncomplicated Cleared for Admission [facility] - Detox or Rehab Claeared for Rehab Admission: Yes [facility] Breath Alcohol Content Breath Alcohol Content: 0 Inpatient Rehab Admission - Initial Determination Are CD services needed?: Yes Free of communicable disease: Yes Not in need of hospitalization: Yes - Rehab Admission Criteria Previous failed treatment: Yes Poor recovery environment: Yes Comorbidities: Yes Lacks judgement: No Patient is meeting Inpatient Rehab admission criteria:: Yes
[2018-08-01] MEDS ORDERED: ACETAMINOPHEN 325 MG TABLET (FP) PO PRN (13:12)
[2018-08-01] MEDS ORDERED: hydrOXYzine PAMOATE 50 MG CAPSULE (FP) PO PRN (13:12)
[2018-08-01] MEDS ORDERED: MAGNESIUM HYDROX 2400MG/30ML ORAL SUSPENSION 30 ML CUP PO PRN (13:12)
[2018-08-01] MEDS ORDERED: guaiFENesin/D-METHORPHAN HB 10 ML UNIT-DOSE CUPS PO PRN (13:12)
[2018-08-01] MEDS ORDERED: P-EPHED 60MG/TRIPROLIDI 2.5MG TABLET PO PRN (13:12)
[2018-08-01] MEDS ORDERED: MENTHOL/PHENOL 1 EACH UD MM PRN (13:12)
[2018-08-01] MEDS ORDERED: MAG HYDROX/AL HYDROX/SIMETH 30 ML UNIT-DOSE CUP PO PRN (13:12)
[2018-08-01] MEDS ORDERED: IBUPROFEN 400 MG TABLET (FP) PO PRN (13:12)
[2018-08-01] MEDS ORDERED: MAGNESIUM CITRATE 300 ML BOTTLE PO PRN (13:12)
[2018-08-01] MEDS ORDERED: LOPERAMIDE HCL 2 MG CAPSULE PO PRN (13:12)
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
[2018-08-01] MEDS: cloNIDine-TTS 0.3 MG /24 HRS PATCH.TDWK TD SCH (19:30)
[2018-08-01] MEDS: THIAMINE HCL 100 MG TABLET (FP) PO SCH (21:59)
[2018-08-01] MEDS: ATORVASTATIN CA 10 MG TABLET (FP) PO SCH (21:59)
[2018-08-02] MEDS ORDERED: PT OWN MED DRAWER 7, Y5N ONE (08:44)
[2018-08-02] MEDS: PRENATAL VITAMINS W/ FOLIC ACID TABLET (FP) PO SCH (10:34)
[2018-08-02] MEDS: NICOTINE 21 MG/24 HOURS TOPICAL PATCH TD SCH (10:34)
[2018-08-02] MEDS: ERGOCALCIFEROL (VITAMIN D2) 50,000 UNIT CAPSULE (FP) PO SCH (10:34)
[2018-08-02] MEDS: HYDROCHLOROTHIAZIDE 25 MG TABLET (FP) PO SCH (10:34)
[2018-08-02] MEDS: LOSARTAN POTASSIUM 50 MG TABLET (FP) PO SCH (10:34)
[2018-08-02] MEDS: THIAMINE HCL 100 MG TABLET (FP) PO SCH (21:43)
[2018-08-02] MEDS: ATORVASTATIN CA 10 MG TABLET (FP) PO SCH (21:43)
[2018-08-03] MEDS: NICOTINE 21 MG/24 HOURS TOPICAL PATCH TD SCH (10:29)
[2018-08-03] MEDS: HYDROCHLOROTHIAZIDE 25 MG TABLET (FP) PO SCH (10:29)
[2018-08-03] MEDS: LOSARTAN POTASSIUM 50 MG TABLET (FP) PO SCH (10:29)
[2018-08-03] MEDS: PRENATAL VITAMINS W/ FOLIC ACID TABLET (FP) PO SCH (10:29)
[2018-08-03] MEDS: ATORVASTATIN CA 10 MG TABLET (FP) PO SCH (21:42)
[2018-08-03] MEDS: THIAMINE HCL 100 MG TABLET (FP) PO SCH (21:42)
[2018-08-04] MEDS ORDERED: PT OWN MED DRAWER 7, Y5N ONE (08:53)
[2018-08-04] MEDS: NICOTINE 21 MG/24 HOURS TOPICAL PATCH TD SCH (10:32)
[2018-08-04] MEDS: PRENATAL VITAMINS W/ FOLIC ACID TABLET (FP) PO SCH (10:32)
[2018-08-04] MEDS: HYDROCHLOROTHIAZIDE 25 MG TABLET (FP) PO SCH (10:32)
[2018-08-04] MEDS: LOSARTAN POTASSIUM 50 MG TABLET (FP) PO SCH (10:32)
[2018-08-04] MEDS: MELATONIN 5 MG TABLETS PO PRN (21:41)
[2018-08-04] MEDS: THIAMINE HCL 100 MG TABLET (FP) PO SCH (21:41)
[2018-08-04] MEDS: ATORVASTATIN CA 10 MG TABLET (FP) PO SCH (21:42)
[2018-08-05] MEDS: LOSARTAN POTASSIUM 50 MG TABLET (FP) PO SCH (10:37)
[2018-08-05] MEDS: PRENATAL VITAMINS W/ FOLIC ACID TABLET (FP) PO SCH (10:37)
[2018-08-05] MEDS: NICOTINE 21 MG/24 HOURS TOPICAL PATCH TD SCH (10:37)
[2018-08-05] MEDS: HYDROCHLOROTHIAZIDE 25 MG TABLET (FP) PO SCH (10:38)
[2018-08-05] MEDS: NICOTINE POLACRILEX 2 MG GUM BUC PRN (21:51)
[2018-08-05] MEDS: THIAMINE HCL 100 MG TABLET (FP) PO SCH (21:51)
[2018-08-05] MEDS: MELATONIN 5 MG TABLETS PO PRN (21:51)
[2018-08-05] MEDS: ATORVASTATIN CA 10 MG TABLET (FP) PO SCH (21:51)
[2018-08-06] MEDS: HYDROCHLOROTHIAZIDE 25 MG TABLET (FP) PO SCH (10:02)
[2018-08-06] MEDS: LOSARTAN POTASSIUM 50 MG TABLET (FP) PO SCH (10:02)
[2018-08-06] MEDS: NICOTINE 21 MG/24 HOURS TOPICAL PATCH TD SCH (10:02)
[2018-08-06] MEDS: PRENATAL VITAMINS W/ FOLIC ACID TABLET (FP) PO SCH (10:02)
[2018-08-06] MEDS: NICOTINE POLACRILEX 2 MG GUM BUC PRN (10:03)
[2018-08-06] MEDS: ATORVASTATIN CA 10 MG TABLET (FP) PO SCH (21:58)
[2018-08-06] MEDS: MELATONIN 5 MG TABLETS PO PRN (21:58)
[2018-08-06] MEDS: THIAMINE HCL 100 MG TABLET (FP) PO SCH (21:58)
[2018-08-06] MEDS ORDERED: PT OWN MED DRAWER 7, Y5N ONE (22:05)
[2018-08-07] MEDS ORDERED: PT OWN MED DRAWER 7, Y5N ONE ×2 (08:48→10:51)
[2018-08-07] MEDS: HYDROCHLOROTHIAZIDE 25 MG TABLET (FP) PO SCH (10:49)
[2018-08-07] MEDS: NICOTINE 21 MG/24 HOURS TOPICAL PATCH TD SCH (10:49)
[2018-08-07] MEDS: PRENATAL VITAMINS W/ FOLIC ACID TABLET (FP) PO SCH (10:49)
[2018-08-07] MEDS: NICOTINE POLACRILEX 2 MG GUM BUC PRN ×2 (10:52→21:56)
[2018-08-07] MEDS: LOSARTAN POTASSIUM 50 MG TABLET (FP) PO SCH (12:40)
--- NOTE | 2018-08-07 18:45 | PN ---
[facility] Progress Note Note: Called b/c pt "passed out". While pt was eating dinner, pt states she felt hot, sweaty and felt lightheaded and soon after she lost consciousness - fell forward onto her dinner plate. Pt did not fall to floor or hit her head. Pt was sitting next to a heater. Initial VS 149/87, OH 106, RR 10 Blood sugar 228. Pt had a similar episode about 10 days ago and was sent to [facility]- noted to have high BUN/Cr- rehydrated and sent back to [facility] for rehab. Urine Creatinine done here was very high ~ 10days ago-07/30- indicative of concentrated urine- dehydration. Pt states that she is feeling fine now and thinks that she may be not drinking enough. Pt is on a "water pill"- HCTZ and clonidine 0.3 mg TID and Cozaar- multiple BP meds. PE Vital Signs - 24 hr 08/07/18 08/07/18 08/07/18 00:30 03:30 07:15 Temperature 97 F L Pulse Rate 78 Respiratory 18 18 18 Rate Blood Pressure 141/84 08/07/18 08/07/18 08/07/18 09:29 12:40 18:31 Temperature Pulse Rate 70 76 106 H Respiratory 18 Rate Blood Pressure 134/92 165/85 149/87 lungs clear heart RRR neuro- alert and oriented, no evidence of seizure activity a/p: 72 yo with h/o dehydration on HCTZ and likely vasovagal episode due to dehydration- pt is older and on multiple BP meds and with have high BGM. NL PE Plan: Encourage increased fluid intake, d/c HCTZ, BGM twice a day. Repeat VS.
[2018-08-07] MEDS: THIAMINE HCL 100 MG TABLET (FP) PO SCH (21:55)
[2018-08-07] MEDS: ATORVASTATIN CA 10 MG TABLET (FP) PO SCH (21:55)
[2018-08-07] MEDS: MELATONIN 5 MG TABLETS PO PRN (21:55)
[2018-08-08] MEDS: LOSARTAN POTASSIUM 50 MG TABLET (FP) PO SCH (09:36)
[2018-08-08] MEDS: NICOTINE POLACRILEX 2 MG GUM BUC PRN ×2 (09:37→18:40)
[2018-08-08] MEDS: PRENATAL VITAMINS W/ FOLIC ACID TABLET (FP) PO SCH (09:37)
[2018-08-08] MEDS: NICOTINE 21 MG/24 HOURS TOPICAL PATCH TD SCH (09:37)
[2018-08-08] MEDS: cloNIDine-TTS 0.3 MG /24 HRS PATCH.TDWK TD SCH (14:13)
[2018-08-08] MEDS: THIAMINE HCL 100 MG TABLET (FP) PO SCH (21:26)
[2018-08-08] MEDS: MELATONIN 5 MG TABLETS PO PRN (21:26)
[2018-08-08] MEDS: ATORVASTATIN CA 10 MG TABLET (FP) PO SCH (21:27)
[2018-08-09] MEDS ORDERED: PT OWN MED DRAWER 7, Y5N ONE (09:00)
--- NOTE | 2018-08-09 10:00 | PN ---
[facility] Progress Note Note: patient c/o difficulty falling asleep , usually falls asleep around 3 -4 a.m. requesting increase in sleep meds . pt agreeable to try increase in Melatonin , decrease in Nicotine encouraged to use prn hydroxyzine as well , verbalizes understanding
[2018-08-09] MEDS: LOSARTAN POTASSIUM 50 MG TABLET (FP) PO SCH (10:14)
[2018-08-09] MEDS: PRENATAL VITAMINS W/ FOLIC ACID TABLET (FP) PO SCH (10:14)
[2018-08-09] MEDS: ERGOCALCIFEROL (VITAMIN D2) 50,000 UNIT CAPSULE (FP) PO SCH (10:14)
[2018-08-09] MEDS: NICOTINE 21 MG/24 HOURS TOPICAL PATCH TD SCH (10:18)
[2018-08-09] MEDS: NICOTINE 14 MG/24 HOURS TOPICAL PATCH TD SCH (10:37)
[2018-08-09] MEDS: MELATONIN 5 MG TABLETS PO PRN (21:38)
[2018-08-09] MEDS: THIAMINE HCL 100 MG TABLET (FP) PO SCH (21:38)
[2018-08-09] MEDS: ATORVASTATIN CA 10 MG TABLET (FP) PO SCH (21:38)
[2018-08-09] MEDS: NICOTINE POLACRILEX 2 MG GUM BUC PRN (21:39)
[2018-08-10] MEDS ORDERED: PT OWN MED DRAWER 7, Y5N ONE (08:26)
[2018-08-10] MEDS ORDERED: NICOTINE 14 MG/24 HOURS TOPICAL PATCH TD SCH (10:00)
[2018-08-10] MEDS: LOSARTAN POTASSIUM 50 MG TABLET (FP) PO SCH (10:08)
[2018-08-10] MEDS: NICOTINE 14 MG/24 HOURS TOPICAL PATCH TD SCH (10:08)
[2018-08-10] MEDS: PRENATAL VITAMINS W/ FOLIC ACID TABLET (FP) PO SCH (10:08)
[2018-08-10] MEDS: NICOTINE POLACRILEX 2 MG GUM BUC PRN ×3 (10:10→21:10)
[2018-08-10] MEDS: THIAMINE HCL 100 MG TABLET (FP) PO SCH (21:09)
[2018-08-10] MEDS: MELATONIN 5 MG TABLETS PO PRN (21:09)
[2018-08-10] MEDS: ATORVASTATIN CA 10 MG TABLET (FP) PO SCH (21:09)
[2018-08-11] MEDS: NICOTINE 14 MG/24 HOURS TOPICAL PATCH TD SCH (10:21)
[2018-08-11] MEDS: PRENATAL VITAMINS W/ FOLIC ACID TABLET (FP) PO SCH (10:21)
[2018-08-11] MEDS: LOSARTAN POTASSIUM 50 MG TABLET (FP) PO SCH (10:21)
[2018-08-11] MEDS: MELATONIN 5 MG TABLETS PO PRN (21:27)
[2018-08-11] MEDS: THIAMINE HCL 100 MG TABLET (FP) PO SCH (21:27)
[2018-08-11] MEDS: NICOTINE POLACRILEX 2 MG GUM BUC PRN (21:29)
[2018-08-11] MEDS: ATORVASTATIN CA 10 MG TABLET (FP) PO SCH (21:39)
[2018-08-12] MEDS: PRENATAL VITAMINS W/ FOLIC ACID TABLET (FP) PO SCH (10:13)
[2018-08-12] MEDS: LOSARTAN POTASSIUM 50 MG TABLET (FP) PO SCH (10:13)
[2018-08-12] MEDS: NICOTINE 14 MG/24 HOURS TOPICAL PATCH TD SCH (10:13)
[2018-08-12] MEDS: NICOTINE POLACRILEX 2 MG GUM BUC PRN (10:15)
[2018-08-12] MEDS: THIAMINE HCL 100 MG TABLET (FP) PO SCH (22:01)
[2018-08-12] MEDS: ATORVASTATIN CA 10 MG TABLET (FP) PO SCH (22:01)
[2018-08-13 07:17] VITALS: TEMP 97.7
[2018-08-13] MEDS: NICOTINE 14 MG/24 HOURS TOPICAL PATCH TD SCH (10:41)
[2018-08-13] MEDS: LOSARTAN POTASSIUM 50 MG TABLET (FP) PO SCH (10:41)
[2018-08-13] MEDS: PRENATAL VITAMINS W/ FOLIC ACID TABLET (FP) PO SCH (10:43)
[2018-08-13] MEDS: NICOTINE POLACRILEX 2 MG GUM BUC PRN ×2 (10:44→21:19)
[2018-08-13] MEDS: THIAMINE HCL 100 MG TABLET (FP) PO SCH (21:17)
[2018-08-13] MEDS: ATORVASTATIN CA 10 MG TABLET (FP) PO SCH (21:17)
[2018-08-13] MEDS: MELATONIN 5 MG TABLETS PO PRN (21:18)
[2018-08-14] MEDS: NICOTINE POLACRILEX 2 MG GUM BUC PRN (07:00)
[2018-08-14 07:26] VITALS: BP 148/83; PULSE 92
== END 2018-08-14 08:35 | disposition home or self-care (01) | DRG 895 ==
LOC: YASAS 11:49 → Y3E 13:45
PROVIDERS: ADMIT Psychiatry & Neurology Psychiatry; ATTEND Psychiatry & Neurology Psychiatry
PROC: HZ42ZZZ Group Counseling for Substance Abuse Treatment, Cognitive-Behavioral (ICD-10-PCS; principal; 2018-08-01)
DX: F11.20 Opioid dependence, uncomplicated (principal); F14.20 Cocaine dependence, uncomplicated; F12.20 Cannabis dependence, uncomplicated; F17.210 Nicotine dependence, cigarettes, uncomplicated; I10 Essential (primary) hypertension; E78.00 Pure hypercholesterolemia, unspecified; K21.9 Gastro-esophageal reflux disease without esophagitis; Z88.0 Allergy status to penicillin
CPT/HCPCS: 82962